=== PATIENT | female | born 1955 | race Caucasian/White ===

== ENCOUNTER 2024-07-22 19:09 | Inpatient (IN) | payer OTHER, SELFPAY ==
--- NOTE | ~2024-07-22 | XR_ITS ---
EXAMINATION: XR CHEST CLINICAL INFORMATION: cough COMPARISON: Chest x-ray 07/22/2024 TECHNIQUE: Frontal view of the chest was obtained. FINDINGS: The lungs are hypoexpanded without acute pneumonic process. There is a focal density in the left retrocardiac area likely fluid-filled hiatal hernia. Consolidation is not excluded. Heart size is normal. Pulmonary vascularity is normal. No gross bony abnormality. XR/XR chest 1V IMPRESSION: Density left retrocardiac area with most likely fluid-filled hiatal hernia. Consolidation is not excluded. Recommend lateral view. Hypoventilated lungs. Electronically signed by: Hector Landis MD 07/26/2024 04:37 PM EST
--- NOTE | ~2024-07-22 | CT_ITS ---
CLINICAL HISTORY: Mental status change CT head without contrast Comparison: None Findings: Scattered subcortical and periventricular hypoattenuation, likely in keeping with chronic small vessel ischemic disease. Parenchymal volume loss with compensatory prominence of the ventricles and CSF spaces. No acute territorial infarction, intracranial hemorrhage, midline shift or hydrocephalus. The visualized paranasal sinuses and mastoid air cells are normal. The orbits are unremarkable. There is no acute fracture. Bilateral lens extraction. IMPRESSION: 1. No acute intracranial findings. 2. Additional findings as described. This document has been electronically signed by: Rodrigo Clark MD on 07/22/2024 20:23:30
--- NOTE | ~2024-07-22 | XR_ITS ---
CLINICAL HISTORY: Mental status change 1 view chest x-ray Comparison: None Findings: Low lung volumes. The lungs are clear. Heart size is normal. No acute fracture. IMPRESSION: 1. No acute findings. This document has been electronically signed by: Rodrigo Clark MD on 07/22/2024 20:03:48
--- NOTE | ~2024-07-22 | CT_ITS ---
CLINICAL HISTORY: Elevated lactic CT abdomen and pelvis without contrast Comparison: None Findings: Motion and streak artifact limit evaluation. 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 Calcified granuloma in the right lung. Cardiomegaly without significant pericardial effusion. Coronary artery calcifications. Postcholecystectomy. Calcified granulomas in the spleen. Thickening of the bilateral adrenal glands/hyperplasia, nonspecific. No urolithiasis. Large rectal and colonic stool burden. No bowel obstruction. Postsurgical abdominal wall changes. Normal appendix. Scattered colonic diverticulosis without diverticulitis or colitis. Correa catheter in the bladder, decompressed with mural thickening and scattered air anteriorly may be related to infection or instrumentation. The bones are intact. IMPRESSION: 1. Correa catheter in place with questionable cystitis. 2. Large rectal and colonic stool burden. This document has been electronically signed by: Rodrigo Clark MD on 07/23/2024 02:21:32
[2024-07-22 19:28] VITALS: PULSE 78; O2SAT 93
[2024-07-22 19:30] VITALS: BP 154/71; PULSE 75; RESP 20; TEMP 36.1; O2SAT 96; BMI 38.2
[2024-07-22 19:30] LABS: Glucose, Whole Blood > 600 mg/dL (60-115)
--- NOTE | 2024-07-22 19:40 | ECG_ITS ---
Test Reason : MENTAL STATUS CHANGE Blood Pressure : */* mmHG Vent. Rate : 76 BPM Atrial Rate : 76 BPM P-R Int : 146 ms QRS Dur : 80 ms QT Int : 396 ms P-R-T Axes : 29 1 46 degrees QTcB Int : 445 ms Normal sinus rhythm Normal ECG No previous ECGs available Referred By: Blaire Alves Electronically Signed By: Clinton Rodriguez
--- NOTE | 2024-07-22 19:43 | ED.AMS ---
HPI - Altered Mental Status General Chief Complaint: Altered Mental Status Stated Complaint: ams x 2 days, weakness Time Seen by Provider: 07/22/24 19:28 Source: family (Daughter) and seismic interpreter Mode of arrival: ambulatory Limitations: no limitations and altered mental status History of Present Illness ED Provider: DR. Alves HPI narrative: 68-year-old female past medical history significant for advanced Alzheimer dementia brought in by her daughter for evaluation of change mental status. Patient normally is nonverbal able to do some of her daily activity but needs her family services manager to do most of the daily activity, patient found to lethargic and decrease status change, daughter admitted that she gave her THC gummies to help her to sleep at night but otherwise do not use no drugs, do not use alcohol. As per family no fever, no chills, no coughing, no chest pain, no abdominal pain. History was obtained from daughter at the bedside, no old records for this patient in our hospital. Related Data Allergies Allergy/AdvReac Type Severity Reaction Status Date / Time No Known Allergies Allergy Verified 07/22/24 19:36 Review of Systems Review of Systems: All other systems are reviewed and are negative Constitutional: Reports as per HPI and Reports no additional constitutional complaints Eyes: Reports as per HPI and Reports no additional eye complaints Reports system reviewed and no additional complaints, except as documented Cardiovascular: Reports as per HPI and Reports no additional cardiovascular complaints Respiratory: Reports as per HPI and Reports no additional respiratory complaints Gastrointestinal: Reports as per HPI and Reports no additional gastrointestinal complaints Genitourinary: Reports no additional female genitourinary complaints Musculoskeletal: Reports no additional musculoskeletal complaints Skin/Breast: Reports system reviewed and no additional complaints, except as docu Psychiatric: Reports no additional psychiatric complaints Endocrine: Reports no additional endocrine complaints Hematologic/Lymphatic: Reports no additional hematologic/lymphatic complaints Allergic/Immunologic: Reports no additional allergic/immunologic complaints Reports system reviewed and no additional complaints, except as documented and Reports Abnormal speech present [facility] Social History Social History Use of substances other than those prescribed or required for medical reasons: Yes Substance Use Type: Marijuana Advance Directives: No Advance Directives Information Provided: No Physical Exam ED Vital Signs: Vital Signs - 24 hr 07/22/24 19:30 07/22/24 22:15 07/23/24 00:42 Temperature 97.0 F 97.6 F Pulse Rate 75 72 68 Respiratory Rate 20 14 19 Blood Pressure 154/71 H 151/58 H 123/24 L Pulse Oximetry 96 98 97 Oxygen Delivery Method Room Air Room Air Room Air BMI result Body Mass Index 38.2 Vital signs have been reviewed and appear to be correct. Blood pressure elevated. Heart rate normal. Respiratory rate normal. Temperature normal. Oxygen saturation normal. Appearance: Alert. Lethargic respond to verbal stimuli by opening her eyes. No acute distress. Head: Normal external exam. Normocephalic. Atraumatic. No Bennett signs noted. No raccoon eyes noted Eyes: PERRLA. EOMI. Conjunctiva and sclera normal. Eyelids normal. ENT: TM's Normal. Pharynx normal. Uvula midline. Moist mucous membranes. No trismus noted. No drooling noted. No muffled voice noted. Neck: Normal inspection. Neck supple. FROM. No adenopathy. Thyroid Normal. No meningeal signs. No neck mass noted. CVS: Normal heart rate and rhythm. Heart sound normal. No murmurs noted. Pulses normal throughout. Respiratory: No respiratory distress. Painless inspiration. Breath sounds normal. No wheezes/rales/rhonchi noted. Chest nontender. No accessory muscle usage noted or decreased air movement noted. Abdomen: Soft and nontender. Bowel sounds normal in all 4 quadrants. No distention noted. No organomegaly noted. No visible injury noted. Back: No CVA tenderness. Full range of motion noted. Skin: Skin warm and dry. Normal skin color. Normal skin turgor. No rashes/lesions/lacerations noted. Extremities: No lower extremity edema. Extremities exhibit normal range of motion. Extremities nontender. Neuro: Lethargic. Cranial nerve exam: II-XII are grossly intact No motor deficit. No sensory deficit. Reflexes normal. Course Reevaluation(s) Reevaluation #1: 68 yo female with baseline dementia. Patient presented with change mental status found to be in HHS calculated water deficit was about 4 L patient received in the emergency department 2-1/2 L of saline, patient received also total of 15 units of IV insulin boluses repeat labs showed improvement of hyperglycemia with worsening of hypernatremia. 1. Will start on insulin drip start on 7 units/hour. 2. will change IV fluids from normal saline to LR according to the insulin IV drip protocol. 3. Head CT is unremarkable. 4. discussed with Dr. Saunders accepted to ICU. Time: 01:02 Medications Administered Discontinued Medications Generic Name Dose Route Start Last Admin Trade Name Debbie PRN Reason Stop Dose Admin Sodium Chloride 1,000 mls @ 999 mls/hr 07/22/24 19:40 07/22/24 22:40 Ns IV 07/22/24 20:40 Infused .Q1H1M ONE Infusion Sodium Chloride 1,000 mls @ 999 mls/hr 07/22/24 20:49 07/22/24 23:42 Ns IV 07/22/24 21:49 Infused .Q1H1M ONE Infusion Sodium Chloride 1,000 mls @ 999 mls/hr 07/22/24 21:55 07/23/24 00:28 Ns IV 07/22/24 22:55 Infused .Q1H1M ONE Infusion Insulin Human Regular 10 unit 07/22/24 20:49 07/22/24 21:05 Insulin Regular, Human 100 Unit/Ml 10 Ml Vial IVPUSH 07/22/24 20:50 10 unit ONCE ONE Administration Insulin Human Regular 5 unit 07/22/24 21:54 07/22/24 22:05 Insulin Regular, Human 100 Unit/Ml 10 Ml Vial IVPUSH 07/22/24 21:55 5 unit ONCE ONE Administration Naloxone HCl 0.2 mg 07/22/24 19:47 07/22/24 20:12 Naloxone Hcl 0.4 Mg/Ml Vial IVPUSH 07/22/24 19:48 0.2 mg STAT STA Administration Medical Decision Making Differential Diagnosis Differential Diagnoses: The differential diagnosis associated with the presentation includes (DKA, HHS, electrolyte derangement, severe anemia, UTI, pneumonia, pneumothorax, pleural effusion, intracranial pathology, metabolic encephalopathy.) Admission/Observation Consideration of admission/observation: Escalation of care including admission/observation considered Consult Healthcare Provider Management of the patient was discussed with: Parimutuel Ticket Checker (Dr. Saunders.) Lab Data MDM Lab Attestation statement: I reviewed the patient's lab results. 07/22/24 20:13 07/22/24 23:40 Labs: Lab Results 07/22/24 07/22/24 07/22/24 Range/Units 19:26 20:12 20:13 WBC 13.7 H (4.8-10.8) X10*3/uL RBC 5.53 H (4.20-5.50) X10*6/uL Hgb 15.4 (12.0-16.0) g/dl Hct 49.0 H (37.0-47.0) % MCV 88.6 (80.0-98.0) fL MCH 27.8 (27.0-33.0) pg MCHC 31.4 (31.0-35.0) g/dl RDW 14.7 (11.0-16.0) % Plt Count 311 (160-400) X10*3/uL MPV 12.1 (9.4-12.3) fL Immature Gran % (Auto) 0.4 (0.0-0.4) % Neut % (Auto) 85.6 H (45-73) % Lymph % (Auto) 6.3 L (20-40) % [place] % (Auto) 7.2 (2-11) % Eos % (Auto) 0.0 (0-4) % Baso % (Auto) 0.5 (0-2) % Lymph # (Auto) 0.9 L (1.2-4.9) X10*3/uL [place] # (Auto) 1.0 (0.1-1.2) X10*3/uL Eos # (Auto) 0.0 (0.0-0.4) X10*3/uL Baso # (Auto) 0.1 (0.0-0.2) X10*3/uL Abs Immat Gran (auto) 0.06 H (0.00-0.03) X10*3/uL Absolute Neuts (auto) 11.7 H (2.0-8.3) x10*3/uL Absolute Nucleated RBC 0.000 (0.0-0.012) X10*3/uL Nucleated RBC % (auto) 0.0 (0.0-0.2) /100WBC VBG pH (7.32-7.43) VBG pCO2 mmHg VBG pO2 mmHg VBG HCO3 (22-26) mmol/L VBG O2 Saturation % VBG Base Excess mmol/L Sodium 155 H (135-145) mmol/L Potassium 4.0 (3.3-5.1) mmol/L Chloride 118 H (96-108) mmol/L Carbon Dioxide 21 L (22-29) mmol/L Anion Gap 20 (12-20) BUN 83 H (9-16) mg/dL Creatinine 3.34 H (0.5-1.4) mg/dL Estim Creat Clear Calc 14.4 Estimated GFR 14 POC Glucose > 600 H* (60-115) mg/dL Random Glucose 1152 H* (60-115) mg/dL Calcium 11.0 H (8.4-10.2) mg/dL Total Bilirubin 0.5 (0.0-1.0) mg/dL Direct Bilirubin 0.2 (0.0-0.5) mg/dL AST 17 (5-31) U/L ALT 9 (0-31) U/L Alkaline Phosphatase 133 H (39-117) U/L Ammonia 37 (13-55) umol/L Troponin I High Sens 23.6 H (<3.5-17.0) ng/L B-Natriuretic Peptide 44 (<100) pg/mL Total Protein 8.8 H (6.5-8.0) g/dL Albumin 4.3 (3.5-5.0) g/dL Lipase 125 H (8-78) U/L Urine Color Urine Appearance Urine pH (5.0-9.0) Ur Specific [place] (1.005-1.025) Urine Protein (Neg-Trace) mg/dL Urine Glucose (UA) (Negative) mg/dL Urine Ketones (Negative) mg/dL Urine Blood (Negative) Urine Nitrite (Negative) Ur Leukocyte Esterase (Negative) Urine RBC (0-2) /HPF Urine WBC (0-5) /HPF Ur Squamous Epith Cells (0-2) /HPF Urine Bacteria (None Seen) Hyaline Casts (0-2) /LPF Urine Opiates Screen (Not Detect) Ur Buprenorphine Scrn (Not Detect) ng/mL Ur Oxycodone Screen (Not Detect) ng/mL Urine Methadone Screen (Not Detect) ng/mL Urine Fentanyl Screen (Not Detect) Ur Barbiturates Screen (Not Detect) Ur Phencyclidine Scrn (Not Detect) Ur Amphetamines Screen (Not Detect) U Benzodiazepines Scrn (Not Detect) Urine Cocaine Screen (Not Detect) U Marijuana (THC) Screen (Not Detect) Ethyl Alcohol < 10 mg/dL Influenza Type A (PCR) NEGATIVE (Negative) Influenza Type B (PCR) NEGATIVE (Negative) RSV RNA Qual (PCR) NEGATIVE (Negative) SARS-CoV-2 RNA (RT-PCR) NEGATIVE (Negative) 07/22/24 07/22/24 07/22/24 Range/Units 20:19 22:09 23:24 WBC (4.8-10.8) X10*3/uL RBC (4.20-5.50) X10*6/uL Hgb (12.0-16.0) g/dl Hct (37.0-47.0) % MCV (80.0-98.0) fL MCH (27.0-33.0) pg MCHC (31.0-35.0) g/dl RDW (11.0-16.0) % Plt Count (160-400) X10*3/uL MPV (9.4-12.3) fL Immature Gran % (Auto) (0.0-0.4) % Neut % (Auto) (45-73) % Lymph % (Auto) (20-40) % [place] % (Auto) (2-11) % Eos % (Auto) (0-4) % Baso % (Auto) (0-2) % Lymph # (Auto) (1.2-4.9) X10*3/uL [place] # (Auto) (0.1-1.2) X10*3/uL Eos # (Auto) (0.0-0.4) X10*3/uL Baso # (Auto) (0.0-0.2) X10*3/uL Abs Immat Gran (auto) (0.00-0.03) X10*3/uL Absolute Neuts (auto) (2.0-8.3) x10*3/uL Absolute Nucleated RBC (0.0-0.012) X10*3/uL Nucleated RBC % (auto) (0.0-0.2) /100WBC VBG pH 7.35 (7.32-7.43) VBG pCO2 37 mmHg VBG pO2 41 mmHg VBG HCO3 21 L (22-26) mmol/L VBG O2 Saturation 67.0 % VBG Base Excess -3.4 mmol/L Sodium (135-145) mmol/L Potassium (3.3-5.1) mmol/L Chloride (96-108) mmol/L Carbon Dioxide (22-29) mmol/L Anion Gap (12-20) BUN (9-16) mg/dL Creatinine (0.5-1.4) mg/dL Estim Creat Clear Calc Estimated GFR POC Glucose > 600 H* (60-115) mg/dL Random Glucose (60-115) mg/dL Calcium (8.4-10.2) mg/dL Total Bilirubin (0.0-1.0) mg/dL Direct Bilirubin (0.0-0.5) mg/dL AST (5-31) U/L ALT (0-31) U/L Alkaline Phosphatase (39-117) U/L Ammonia (13-55) umol/L Troponin I High Sens (<3.5-17.0) ng/L B-Natriuretic Peptide (<100) pg/mL Total Protein (6.5-8.0) g/dL Albumin (3.5-5.0) g/dL Lipase (8-78) U/L Urine Color Yellow Urine Appearance Cloudy Urine pH 5.0 (5.0-9.0) Ur Specific [place] >= 1.030 H (1.005-1.025) Urine Protein 30 (1+) H (Neg-Trace) mg/dL Urine Glucose (UA) >=1000 H (Negative) mg/dL Urine Ketones Negative (Negative) mg/dL Urine Blood Moderate (2+) H (Negative) Urine Nitrite Negative (Negative) Ur Leukocyte Esterase Small (1+) H (Negative) Urine RBC 3-5 H (0-2) /HPF Urine WBC 21-50 H (0-5) /HPF Ur Squamous Epith Cells >20 (0-2) /HPF Urine Bacteria 4+ (None Seen) Hyaline Casts 11-20 (0-2) /LPF Urine Opiates Screen Not Detected (Not Detect) Ur Buprenorphine Scrn Not Detected (Not Detect) ng/mL Ur Oxycodone Screen Not Detected (Not Detect) ng/mL Urine Methadone Screen Not Detected (Not Detect) ng/mL Urine Fentanyl Screen Not Detected (Not Detect) Ur Barbiturates Screen Not Detected (Not Detect) Ur Phencyclidine Scrn Not Detected (Not Detect) Ur Amphetamines Screen Not Detected (Not Detect) U Benzodiazepines Scrn Not Detected (Not Detect) Urine Cocaine Screen Not Detected (Not Detect) U Marijuana (THC) Screen POSITIVE H (Not Detect) Ethyl Alcohol mg/dL Influenza Type A (PCR) (Negative) Influenza Type B (PCR) (Negative) RSV RNA Qual (PCR) (Negative) SARS-CoV-2 RNA (RT-PCR) (Negative) 07/22/24 Range/Units 23:40 WBC (4.8-10.8) X10*3/uL RBC (4.20-5.50) X10*6/uL Hgb (12.0-16.0) g/dl Hct (37.0-47.0) % MCV (80.0-98.0) fL MCH (27.0-33.0) pg MCHC (31.0-35.0) g/dl RDW (11.0-16.0) % Plt Count (160-400) X10*3/uL MPV (9.4-12.3) fL Immature Gran % (Auto) (0.0-0.4) % Neut % (Auto) (45-73) % Lymph % (Auto) (20-40) % [place] % (Auto) (2-11) % Eos % (Auto) (0-4) % Baso % (Auto) (0-2) % Lymph # (Auto) (1.2-4.9) X10*3/uL [place] # (Auto) (0.1-1.2) X10*3/uL Eos # (Auto) (0.0-0.4) X10*3/uL Baso # (Auto) (0.0-0.2) X10*3/uL Abs Immat Gran (auto) (0.00-0.03) X10*3/uL Absolute Neuts (auto) (2.0-8.3) x10*3/uL Absolute Nucleated RBC (0.0-0.012) X10*3/uL Nucleated RBC % (auto) (0.0-0.2) /100WBC VBG pH (7.32-7.43) VBG pCO2 mmHg VBG pO2 mmHg VBG HCO3 (22-26) mmol/L VBG O2 Saturation % VBG Base Excess mmol/L Sodium 160 H* (135-145) mmol/L Potassium 3.6 (3.3-5.1) mmol/L Chloride 128 H (96-108) mmol/L Carbon Dioxide 17 L (22-29) mmol/L Anion Gap 19 (12-20) BUN 77 H (9-16) mg/dL Creatinine 3.36 H (0.5-1.4) mg/dL Estim Creat Clear Calc 14.3 Estimated GFR 14 POC Glucose (60-115) mg/dL Random Glucose 843 H* (60-115) mg/dL Calcium 10.5 H (8.4-10.2) mg/dL Total Bilirubin (0.0-1.0) mg/dL Direct Bilirubin (0.0-0.5) mg/dL AST (5-31) U/L ALT (0-31) U/L Alkaline Phosphatase (39-117) U/L Ammonia (13-55) umol/L Troponin I High Sens (<3.5-17.0) ng/L B-Natriuretic Peptide (<100) pg/mL Total Protein (6.5-8.0) g/dL Albumin (3.5-5.0) g/dL Lipase (8-78) U/L Urine Color Urine Appearance Urine pH (5.0-9.0) Ur Specific [place] (1.005-1.025) Urine Protein (Neg-Trace) mg/dL Urine Glucose (UA) (Negative) mg/dL Urine Ketones (Negative) mg/dL Urine Blood (Negative) Urine Nitrite (Negative) Ur Leukocyte Esterase (Negative) Urine RBC (0-2) /HPF Urine WBC (0-5) /HPF Ur Squamous Epith Cells (0-2) /HPF Urine Bacteria (None Seen) Hyaline Casts (0-2) /LPF Urine Opiates Screen (Not Detect) Ur Buprenorphine Scrn (Not Detect) ng/mL Ur Oxycodone Screen (Not Detect) ng/mL Urine Methadone Screen (Not Detect) ng/mL Urine Fentanyl Screen (Not Detect) Ur Barbiturates Screen (Not Detect) Ur Phencyclidine Scrn (Not Detect) Ur Amphetamines Screen (Not Detect) U Benzodiazepines Scrn (Not Detect) Urine Cocaine Screen (Not Detect) U Marijuana (THC) Screen (Not Detect) Ethyl Alcohol mg/dL Influenza Type A (PCR) (Negative) Influenza Type B (PCR) (Negative) RSV RNA Qual (PCR) (Negative) SARS-CoV-2 RNA (RT-PCR) (Negative) Independent Interpretation I performed an independent interpretation of an: Plain X-Ray (Chest: No acute findings.) and CT Scan (Head:. No acute intracranial findings. 2. Additional findings as described.) Radiology Impression Discussion of test interpretation with radiology: I have reviewed the radiologist's reading. 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
[2024-07-22] MEDS: Naloxone HCl 0.4 MG/ML VIAL 0.2 MG IVPUSH (20:12)
[2024-07-22] MEDS: 0.9 % Sodium Chloride 1,000 ML 999 ML IV ×3 (20:14→23:42)
--- NOTE | 2024-07-22 20:17 | PC.NURSE ---
At approximately 1920 provider [place] was notified that pt was lethargic and POC was reading high Safety Officer called [place] with family and drop hammer set up operator plan of care ongoing.
[2024-07-22 20:19] LABS: MANUAL DIFF FLAG NO
--- NOTE | 2024-07-22 20:19 | PC.NURSE ---
Pt medicated per [facility] Plan of care ongoing.
[2024-07-22 20:21] LABS: Basophils Absolute Auto 0.1 X10*3/uL (0.0-0.2); Basophils Percent Auto 0.5 % (0-2); Hemoglobin 15.4 g/dl (12.0-16.0); Imm Gran Abs Auto 0.06 X10*3/uL (0.00-0.03); Imm Gran Pct Auto 0.4 % (0.0-0.4); Lymphocytes Absolute Auto 0.9 X10*3/uL (1.2-4.9); Lymphocytes Percent Auto 6.3 % (20-40); Mean Corpuscular HGB Conc 31.4 g/dl (31.0-35.0); Mean Corpuscular Hemoglobin 27.8 pg (27.0-33.0); Mean Corpuscular Volume 88.6 fL (80.0-98.0); Mean Platelet Volume 12.1 fL (9.4-12.3); Monocytes Percent Auto 7.2 % (2-11); Neutrophils Absolute Auto 11.7 x10*3/uL (2.0-8.3); Neutrophils Percent Auto 85.6 % (45-73); Platelet Count 311 X10*3/uL (160-400); Red Blood Count 5.53 X10*6/uL (4.20-5.50); Red Cell Distribution Width 14.7 % (11.0-16.0); White Blood Count 13.7 X10*3/uL (4.8-10.8)
[2024-07-22 20:28] LABS: Ammonia 37 umol/L (13-55)
[2024-07-22 20:40] LABS: VBG Base Excess -3.4 mmol/L; VBG HCO3 21 mmol/L (22-26); VBG pCO2 37 mmHg; VBG pH 7.35 (7.32-7.43); VBG pO2 41 mmHg
[2024-07-22 20:40] LABS: Alanine Aminotransferase 9 U/L (0-31); Albumin Level 4.3 g/dL (3.5-5.0); Alkaline Phosphatase 133 U/L (39-117); Anion Gap 20 (12-20); Aspartate Amino Transferase 17 U/L (5-31); Bilirubin Direct 0.2 mg/dL (0.0-0.5); Bilirubin Total 0.5 mg/dL (0.0-1.0); Blood Urea Nitrogen 83 mg/dL (9-16); Carbon Dioxide 21 mmol/L (22-29); Chloride 118 mmol/L (96-108); Creatinine Clr Calc Pharmacy 14.4; Estimated Glomerular Filt Rate 14; Ethanol < 10 mg/dL; Lipase 125 U/L (8-78); Sodium 155 mmol/L (135-145); Total Protein 8.8 g/dL (6.5-8.0)
[2024-07-22 20:41] LABS: Venous Blood Gas Refer to POC result
[2024-07-22 20:41] LABS: B Type Natriuretic Peptide 44 pg/mL (<100)
[2024-07-22 20:44] LABS: Troponin-I High Sensitivity 23.6 ng/L (<3.5-17.0)
[2024-07-22 20:50] LABS: Glucose Random 1152 mg/dL (60-115)
[2024-07-22 20:57] LABS: Influenza A PCR NEGATIVE (Negative); Influenza B PCR NEGATIVE (Negative); Resp Syncy Virus RNA Qual PCR NEGATIVE (Negative); SARS COV2 PCR INHOUSE NEGATIVE (Negative)
[2024-07-22] MEDS: Insulin Regular, Human 100 UNIT/ML 10 ML VIAL 10 UNIT IVPUSH (21:05)
--- NOTE | 2024-07-22 21:10 | PC.NURSE ---
Pt medicated per [facility] Plan of care ongoing.
[2024-07-22] MEDS: Insulin Regular, Human 100 UNIT/ML 10 ML VIAL IVPUSH (22:05)
[2024-07-22 22:14] LABS: Glucose, Whole Blood > 600 mg/dL (60-115)
[2024-07-22 22:15] VITALS: BP 151/58; PULSE 72; RESP 14; O2SAT 98
[2024-07-22 23:30] LABS: Appearance Urine Cloudy; Color Urine Yellow; Glucose Urine UA >=1000 mg/dL (Negative); Leukocyte Esterase Urine Small (1+) (Negative); Nitrite Urine Negative (Negative); Specific Gravity - Urine >= 1.030 (1.005-1.025); UMIC TRIGGER UACC YES; Urine Blood Moderate (2+) (Negative); Urine Ketones Negative (Negative); Urine Protein 30 (1+) mg/dL (Neg-Trace)
--- NOTE | 2024-07-22 23:45 | PC.NURSE ---
Pt medicated per [facility] Plan of care ongoing.
[2024-07-22 23:49] LABS: Amphetamine Screen Urine Not Detected (Not Detect); Barbiturates, Urine Not Detected (Not Detect); Benzodiazepines Screen Urine Not Detected (Not Detect); Buprenorphine Scr Not Detected (Not Detect); Cannabinoid Screen Urine POSITIVE (Not Detect); Cocaine Screen Urine Not Detected (Not Detect); Fentanyl, urine Not Detected (Not Detect); Methadone Screen, Urine Not Detected (Not Detect); Opiate Screen Urine Not Detected (Not Detect); Oxycodone Screen Urine Not Detected (Not Detect); Phencyclidine Screen Urine Not Detected (Not Detect)
[2024-07-23] VITALS (23 sets, daily range): BP systolic 113–156; BP diastolic 44–99; PULSE 63–87; RESP 10–22; TEMP 36.1–36.7; O2SAT 93–100; BMI 38.8
[2024-07-23 00:06] LABS: Bacteria Urine 4+ (None Seen); Squamous Epithelial Cell Urine >20 /HPF (0-2); UACC Culture Trigger YES; WBC Urine 21-50 /HPF (0-5)
[2024-07-23 00:32] LABS: Anion Gap 19 (12-20); Blood Urea Nitrogen 77 mg/dL (9-16); Calcium 10.5 mg/dL (8.4-10.2); Carbon Dioxide 17 mmol/L (22-29); Chloride 128 mmol/L (96-108); Creatinine Clr Calc Pharmacy 14.3; Estimated Glomerular Filt Rate 14; Glucose Random 843 mg/dL (60-115); Potassium 3.6 mmol/L (3.3-5.1); Sodium 160 mmol/L (135-145)
[2024-07-23 01:03] LABS: Lactic Acid 4.4 mmol/L (0.5-2.0)
[2024-07-23] MEDS: Insulin Regular/NS 100 UNIT/100 ML PLAST..BAG 7 UNIT IVCONT (01:14)
[2024-07-23] MEDS: cefTRIAXone sodium 1 GM VIAL IVPUSH (01:22)
--- NOTE | 2024-07-23 02:12 | PM.CCHP ---
History of Present Illness Date of Service: 07/23/24 Attending physician on admission: Gael Saunders Chief Complaint: AMS The patient is a 68 year old female with a past medical history of diabetes mellitus? Alzheimer?s dementia, hypertension,? hyperlipidemia and hypothyroidism? who presented to the emergency department due to altered mental status.? According to daughter, who is also patient HUMAN RESOURCES ADVISOR,? patient has a diagnosis of Alzheimer?s dementia,? in the last month? patient?s speech/mentation/ambulation has decreased,? reports she? became nonverbal 2-3 days ago.? She reports patient has also had a hard time taking her meds, ? states she has tried to crush them but patient is still not able to take the meds,? daughter is unsure for how long patient has not been taking her meds.? Also admits to giving her THC gummies,? to help her sleep.? ?Laboratory data significant for? WBC 13.7, serum sodium 155, chloride 118, serum bicarb 21, BUN 83, creatinine 3.34, random glucose 1152,? lactic 4.4, lipase 125 Urine:? no ketones,? positive for leukocytes IMAGING:? Head CT: Negative? for acute finding ?Chest x-ray:? no acute findings ED COURSE:? ?Patient received 3L bolus,? 15 units of IV push insulin,? ceftriaxone 1 g, and started on insulin drip? Review of Systems Review of Systems: Yes all other systems are reviewed and are negative COUNT INCLUDES THE [facility] Past Medical History Medical History (Updated 07/23/24 @ 02:54 by Yony Hancock NP) Hypothyroidism Hyperlipidemia Hypertension Social History Social History Household Members: Family and Children Household Members Other:: Daughter and Daughter Housing: Apartment Do you presently have visiting nurse or other home services: Yes (Daughter is HUMAN RESOURCES ADVISOR) Patient Tobacco Use Status: Never used Tobacco Second Hand Smoke Exposure: Yes Use of substances other than those prescribed or required for medical reasons: Yes Substance Use Type: Marijuana Currently Displaying Signs/Symptoms of Drug Intoxication Withdrawal: No Advance Directives: No Advance Directives Information Provided: No Recently lost weight without trying: No Patient : No : No Meds Allergies Allergy/AdvReac Type Severity Reaction Status Date / Time No Known Allergies Allergy Verified 07/22/24 19:36 Active Medications: Current Medications Ceftriaxone Sodium (Ceftriaxone Sodium 1 Gm Vial) 1 gm IVPUSH BEDTIME ALFONZO Dextrose (Dextrose 50 % 25 Gm/50 Ml Syringe) 25 gm IVPUSH Q30M PRN PRN Reason: BG < 70 Heparin Sodium (Porcine) (Heparin Sodium,Porcine 5,000 Unit/Ml Vial) 5,000 unit SUBCUT TID [facility] Insulin Human Regular (Myxredlin) 100 unit in 100 mls @ 7 mls/hr IVCONT .[id number] ALFONZO; Protocol Last Admin: 07/23/24 01:14 Dose: 7 unit/hr, 7 mls/hr Potassium Chloride (Potassium Chloride/H20) 10 meq in 100 mls @ 100 mls/hr IV Q1H ALFONZO Stop: 07/23/24 05:29 Home Medications ?Medication ?Instructions ?Recorded ?Confirmed ?Last Taken ?Type amlodipine 5 mg tablet 5 mg PO DAILY 07/23/24 07/23/24 07/21/24 History aspirin 81 mg tablet,delayed 81 mg PO DAILY 07/23/24 07/23/24 07/21/24 History release atorvastatin 10 mg tablet 10 mg PO DAILY 07/23/24 07/23/24 07/21/24 History bisoprolol 10 1 tab PO DAILY 07/23/24 07/23/24 07/21/24 History mg-hydrochlorothiazide 6.25 mg tablet donepezil 10 mg tablet 10 mg PO BEDTIME 07/23/24 07/23/24 07/21/24 History glipizide 2.5 mg tablet, extended 2.5 mg PO DAILY 07/23/24 07/23/24 07/21/24 History release 24 hr levothyroxine 150 mcg tablet 150 mcg PO DAILY 07/23/24 07/23/24 07/21/24 History lisinopril 20 mg tablet 20 mg PO DAILY 07/23/24 07/23/24 07/21/24 History omeprazole 20 mg capsule,delayed 20 mg PO DAILY 07/23/24 07/23/24 07/21/24 History release Physical Exam Vital Signs: Vital Signs: Last Vital Signs Temp 97.6 F 07/23/24 00:42 Pulse 68 07/23/24 00:42 Resp 19 07/23/24 00:42 BP 123/44 L 07/23/24 00:42 Pulse Ox 97 07/23/24 00:42 O2 Del Method Room Air 07/23/24 00:42 BMI result Body Mass Index 38.2 ?General:? Patient is alert but not able to respond to questions/ commands ?HEENT:? Head is normocephalic, atraumatic, pupils equal round reactive to light accommodation bilaterally.? Extraocular movements appear intact.? Buccal mucosa is dry, Neck is supple ?Cardiac:? Clear S1-S2, no murmurs rubs or gallops. ?Pulmonary:? Clear to auscultation, no wheezes, rales or rhonchi. ?Abdomen:? ?Abdomen soft, non-tender, non-distended. Normal bowel sounds. No pulsatile mass. No hepatosplenomegaly. ?Musculoskeletal:? Moving all 4 extremities randomly and equally. ? ?Neurologic:?No focal deficits noted.Motor strength as above.?? ?Skin:?BLE Trace edema Vascular:? 2+ pulses upper and lower extremities distally.? Results Labs 07/23/24 06:20 07/23/24 06:20 Labs: Laboratory Results - last 24 hr 07/22/24 07/22/24 07/22/24 19:26 20:12 20:13 MCV 88.6 MCH 27.8 MCHC 31.4 RDW 14.7 Plt Count 311 MPV 12.1 Immature Gran % (Auto) 0.4 Neut % (Auto) 85.6 H Lymph % (Auto) 6.3 L [place] % (Auto) 7.2 Eos % (Auto) 0.0 Baso % (Auto) 0.5 Lymph # (Auto) 0.9 L [place] # (Auto) 1.0 Eos # (Auto) 0.0 Baso # (Auto) 0.1 Abs Immat Gran (auto) 0.06 H Absolute Neuts (auto) 11.7 H Absolute Nucleated RBC 0.000 Nucleated RBC % (auto) 0.0 VBG pH VBG pCO2 VBG pO2 VBG HCO3 VBG O2 Saturation VBG Base Excess Anion Gap 20 Estim Creat Clear Calc 14.4 Estimated GFR 14 POC Glucose > 600 H* Random Glucose 1152 H* Lactic Acid Calcium 11.0 H Total Bilirubin 0.5 Direct Bilirubin 0.2 AST 17 ALT 9 Alkaline Phosphatase 133 H Ammonia 37 B-Natriuretic Peptide 44 Total Protein 8.8 H Albumin 4.3 Lipase 125 H Urine Color Urine Appearance Urine pH Ur Specific [place] Urine Protein Urine Glucose (UA) Urine Ketones Urine Blood Urine Nitrite Ur Leukocyte Esterase Urine RBC Urine WBC Ur Squamous Epith Cells Urine Bacteria Hyaline Casts Urine Opiates Screen Ur Buprenorphine Scrn Ur Oxycodone Screen Urine Methadone Screen Urine Fentanyl Screen Ur Barbiturates Screen Ur Phencyclidine Scrn Ur Amphetamines Screen U Benzodiazepines Scrn Urine Cocaine Screen U Marijuana (THC) Screen Ethyl Alcohol < 10 Influenza Type A (PCR) NEGATIVE Influenza Type B (PCR) NEGATIVE RSV RNA Qual (PCR) NEGATIVE SARS-CoV-2 RNA (RT-PCR) NEGATIVE 07/22/24 07/22/24 07/22/24 20:19 22:09 23:24 MCV MCH MCHC RDW Plt Count MPV Immature Gran % (Auto) Neut % (Auto) Lymph % (Auto) [place] % (Auto) Eos % (Auto) Baso % (Auto) Lymph # (Auto) [place] # (Auto) Eos # (Auto) Baso # (Auto) Abs Immat Gran (auto) Absolute Neuts (auto) Absolute Nucleated RBC Nucleated RBC % (auto) VBG pH 7.35 VBG pCO2 37 VBG pO2 41 VBG HCO3 21 L VBG O2 Saturation 67.0 VBG Base Excess -3.4 Anion Gap Estim Creat Clear Calc Estimated GFR POC Glucose > 600 H* Random Glucose Lactic Acid Calcium Total Bilirubin Direct Bilirubin AST ALT Alkaline Phosphatase Ammonia B-Natriuretic Peptide Total Protein Albumin Lipase Urine Color Yellow Urine Appearance Cloudy Urine pH 5.0 Ur Specific [place] >= 1.030 H Urine Protein 30 (1+) H Urine Glucose (UA) >=1000 H Urine Ketones Negative Urine Blood Moderate (2+) H Urine Nitrite Negative Ur Leukocyte Esterase Small (1+) H Urine RBC 3-5 H Urine WBC 21-50 H Ur Squamous Epith Cells >20 Urine Bacteria 4+ Hyaline Casts 11-20 Urine Opiates Screen Not Detected Ur Buprenorphine Scrn Not Detected Ur Oxycodone Screen Not Detected Urine Methadone Screen Not Detected Urine Fentanyl Screen Not Detected Ur Barbiturates Screen Not Detected Ur Phencyclidine Scrn Not Detected Ur Amphetamines Screen Not Detected U Benzodiazepines Scrn Not Detected Urine Cocaine Screen Not Detected U Marijuana (THC) Screen POSITIVE H Ethyl Alcohol Influenza Type A (PCR) Influenza Type B (PCR) RSV RNA Qual (PCR) SARS-CoV-2 RNA (RT-PCR) 07/22/24 07/23/24 23:40 00:33 MCV MCH MCHC RDW Plt Count MPV Immature Gran % (Auto) Neut % (Auto) Lymph % (Auto) [place] % (Auto) Eos % (Auto) Baso % (Auto) Lymph # (Auto) [place] # (Auto) Eos # (Auto) Baso # (Auto) Abs Immat Gran (auto) Absolute Neuts (auto) Absolute Nucleated RBC Nucleated RBC % (auto) VBG pH VBG pCO2 VBG pO2 VBG HCO3 VBG O2 Saturation VBG Base Excess Anion Gap 19 Estim Creat Clear Calc 14.3 Estimated GFR 14 POC Glucose Random Glucose 843 H* Lactic Acid 4.4 H* Calcium 10.5 H Total Bilirubin Direct Bilirubin AST ALT Alkaline Phosphatase Ammonia B-Natriuretic Peptide Total Protein Albumin Lipase Urine Color Urine Appearance Urine pH Ur Specific [place] Urine Protein Urine Glucose (UA) Urine Ketones Urine Blood Urine Nitrite Ur Leukocyte Esterase Urine RBC Urine WBC Ur Squamous Epith Cells Urine Bacteria Hyaline Casts Urine Opiates Screen Ur Buprenorphine Scrn Ur Oxycodone Screen Urine Methadone Screen Urine Fentanyl Screen Ur Barbiturates Screen Ur Phencyclidine Scrn Ur Amphetamines Screen U Benzodiazepines Scrn Urine Cocaine Screen U Marijuana (THC) Screen Ethyl Alcohol Influenza Type A (PCR) Influenza Type B (PCR) RSV RNA Qual (PCR) SARS-CoV-2 RNA (RT-PCR) Assessment and Plan (1) Acute UTI: Status: Acute (2) Sepsis: Status: Acute (3) Hyperosmolar hyperglycemic state (HHS): Status: Acute Plan Neuro:?Altered mental status: ? according to daughter patient? has diagnosis of Alzheimer?s dementia,? patient seemed to have has a mentation declines in the last month.? Becoming? nonverbal in the last couple of days. ? Head CT is negative.? Patient has a UTI and is in HHS? this could be the cause of altered mental status.? Should improve? with improvement of hyperglycemia and UTI? Cardiac:? Sepsis:? patient has elevated lactic,? but no evidence of septic shock, ? she is normotensive and no fever.? Causes likely UTI.? Due to? patient mentation will obtain abdominal CT? to rule other possible abdominal sources. Treated with ceftriaxone in the emergency department.? We will continue empiric antibiotics.? Pulmonary:? ?No acute issues Renal:? ?No acute issues Endo:? DM type 2/ Hyperosmolar hyperglycemic state: ? according to daughter patient has not been able to take meds,? this is likely the cause of? HHS. She received x 2? doses IV push insulin, but later requiring? initiation of? insulin drip.? Continue insuli drip? until acceptable glucose levels.? GI: ? No acute issues ID:? ??UTI:? no evidence of? septic shock,? blood cultures obtained in the emergency department and pending.? Continue ceftriaxone Psych:? ? no acute issues? Miscellaneous:?? ?plant maintenance manager consult placed for safe discharge? Prophylaxis: subcut heparin Diet:? NPO, will obtain a formal speech eval MED REC:? med reconsideration pending,? as patient?s daughter does not know medications.? ?Critical care time: ? patient does not qualify for critical care time ?Case discussed with attending Dr Saunders?
[2024-07-23 02:18] LABS: T4 Thyroxine 8.5 ug/dL (4.5-12.0); Thyroid Stimulating Hormone 0.97 uIU/mL (0.32-4.0)
[2024-07-23 02:19] LABS: Glucose, Whole Blood 596 mg/dL (60-115)
[2024-07-23 02:42] LABS: Reflex Lactate? Lactic Acid Added
[2024-07-23 03:20] LABS: Glucose, Whole Blood 450 mg/dL (60-115)
[2024-07-23 03:37] LABS: ~Lactic Acid-LAB USE ONLY 5.5 mmol/L (0.5-2.0)
[2024-07-23] MEDS: Potassium Chloride/H20 10 MEQ/100 ML PIGGYBACK 100 MEQ IV ×4 (03:44→09:03)
[2024-07-23 04:19] LABS: Glucose, Whole Blood 404 mg/dL (60-115)
[2024-07-23 05:06] LABS: Reflex Lactate? 2 Y
--- NOTE | 2024-07-23 05:09 | HO.SKINPHOTO ---
Location: left buttock/upper thigh Present on admission Location: Right buttock Present on admission
[2024-07-23 05:17] LABS: Glucose, Whole Blood 397 mg/dL (60-115)
[2024-07-23 06:20] LABS: Glucose, Whole Blood 371 mg/dL (60-115)
[2024-07-23 06:34] LABS: Venous Blood Gas Refer to POC result
[2024-07-23 06:37] LABS: VBG Base Excess -6.2 mmol/L; VBG HCO3 16 mmol/L (22-26); VBG pCO2 27 mmHg; VBG pO2 131 mmHg
[2024-07-23 06:37] LABS: Basophils Absolute Auto 0.1 X10*3/uL (0.0-0.2); Basophils Percent Auto 0.6 % (0-2); Eosinophils Percent Auto 0.3 % (0-4); Hematocrit 43.8 % (37.0-47.0); Imm Gran Abs Auto 0.09 X10*3/uL (0.00-0.03); Imm Gran Pct Auto 0.6 % (0.0-0.4); Lymphocytes Absolute Auto 1.3 X10*3/uL (1.2-4.9); Lymphocytes Percent Auto 9.2 % (20-40); MANUAL DIFF FLAG SCAN; Mean Corpuscular Hemoglobin 27.8 pg (27.0-33.0); Mean Corpuscular Volume 87.1 fL (80.0-98.0); Monocytes Percent Auto 6.9 % (2-11); Neutrophils Absolute Auto 11.5 x10*3/uL (2.0-8.3); Neutrophils Percent Auto 82.4 % (45-73); PLT CLUMP 1; Red Blood Count 5.03 X10*6/uL (4.20-5.50); Red Cell Distribution Width 14.6 % (11.0-16.0); SCAN SMEAR FLAG 1
--- NOTE | 2024-07-23 06:40 | PC.NURSE ---
Patient arrived to ICU from ED at approx 0200. Upon initial assessment, patient Urdu speaking only. Elevated Guard services to bedside. Per patient's daughter/CONCRETE LAYER, patient has advanced dementia, and is newly nonverbal. Patient alert to name, Moves all extremities, able to occasionally follow commands. SR on tele, HR 60-70s. Lung sounds clear, diminished in the bases, on room air. Abdomen soft and non-tender, active bowel sounds x4. Insulin gtt running per JUL. Per patient daughter, patient has been having difficulty swallowing for the last few days. Speech consult placed by MECHELLE Hancock. Correa catheter in place draining pale yellow urine. Skin warm and dry, areas of maceration to buttocks (see skin photos), diaper rash per daughter. Daughter went home for the night, took patient?belongings with her. Bed locked in lowest possible position, bed alarm on, avasys camera in place for safety.? 0330: Patient dozing, SB on tele, HR dropping to 40s, sometimes high 30s. MECHELLE Hancock aware. 0430: Patient teary and anxious-appearing. Requiring frequent redirection. Verbal reassurance given. 0600: Patient very difficult stick, BAGGER MEAT aware of delay in lab results.? Now: Report given to oncoming RN
[2024-07-23 07:01] LABS: Mean Platelet Volume 12.4 fL (9.4-12.3)
[2024-07-23 07:06] LABS: Platelet Count 188 X10*3/uL (160-400); SLIDE REVIEW VERIFIED
[2024-07-23 07:25] LABS: Albumin Level 3.6 g/dL (3.5-5.0); Anion Gap 17 (12-20); Blood Urea Nitrogen 68 mg/dL (9-16); Calcium 10.3 mg/dL (8.4-10.2); Carbon Dioxide 16 mmol/L (22-29); Chloride 137 mmol/L (96-108); Creatinine Clr Calc Pharmacy 18.4; Estimated Glomerular Filt Rate 18; Glucose Random 431 mg/dL (60-115); Magnesium 2.9 mg/dL (1.6-2.6); Phosphorus 2.4 mg/dL (2.7-4.5); Sodium 166 mmol/L (135-145)
[2024-07-23 07:35] LABS: Glucose, Whole Blood 299 mg/dL (60-115)
[2024-07-23] MEDS: Heparin Sodium,Porcine 5,000 UNIT/ML VIAL 5000 UNIT SUBCUT ×3 (07:52→20:31)
[2024-07-23 07:58] LABS: Estimated Average Glucose 278 mg/dL; Hemoglobin A1C 392.4237 umol/L; Hemoglobin A1c % 11.3 % (<6.0); Total Hemoglobin (HGBA1C) 3927.4184 umol/L
[2024-07-23] MEDS: Dextrose 5 % 1,000 ML 125 ML IVCONT ×3 (08:11→23:52)
--- NOTE | 2024-07-23 08:15 | PHA.MEDREC ---
Pharmacy Consult ? Medication Reconciliation Pharmacy has completed the medication reconciliation. Med rec complete, used cable swager to call daughter and also compared with pharmacy claim history. Daughter confirmed that levothyroxine dose was 150 mcg.
[2024-07-23 08:33] LABS: Glucose, Whole Blood 232 mg/dL (60-115)
[2024-07-23 08:45] LABS: Troponin-I High Sensitivity 27.4 ng/L (<3.5-17.0)
[2024-07-23 08:47] LABS: ~Lactic Acid-LAB USE ONLY 4.1 mmol/L (0.5-2.0)
[2024-07-23 09:33] LABS: Glucose, Whole Blood 193 mg/dL (60-115)
[2024-07-23 10:40] LABS: Glucose, Whole Blood 163 mg/dL (60-115)
[2024-07-23 11:51] LABS: Glucose, Whole Blood 182 mg/dL (60-115)
[2024-07-23 12:29] LABS: Glucose, Whole Blood 247 mg/dL (60-115)
--- NOTE | 2024-07-23 13:31 | MHC.CM.PN ---
Met with patient and daughter, Leeann, with the assistance of the care professional. Patient lives with her daughter, uses a wheelchair for long distances when out of the home, and receives [employer] hours through [facility]. PCP is at [facility] in [place]. But Leeann does not know the provider's name. Patient has a history of dementia. Patient is able to name her daughter, Leeann, as her HCP. HCP completed. T/W signed as principal. 2 other witnessed signed HCP. Original given to patient. Copy placed in chart. Leeann does not feel patient would be appropriate for STR and anticipates patient will return home. Referral made to [facility] for [facility]. Patient will need BLS transport when medically stable. Patient and Leeann verbalize understanding and agreement. Continue to monitor for d/c needs.
[2024-07-23 13:44] LABS: Glucose, Whole Blood 211 mg/dL (60-115)
[2024-07-23 14:37] LABS: Glucose, Whole Blood 161 mg/dL (60-115)
[2024-07-23 15:20] LABS: Anion Gap 12 (12-20); Blood Urea Nitrogen 59 mg/dL (9-16); Calcium 10.1 mg/dL (8.4-10.2); Carbon Dioxide 17 mmol/L (22-29); Chloride 139 mmol/L (96-108); Creatinine Clr Calc Pharmacy 22.4; Estimated Glomerular Filt Rate 23; Glucose Random 182 mg/dL (60-115); Potassium 3.4 mmol/L (3.3-5.1); Sodium 165 mmol/L (135-145)
[2024-07-23 15:36] LABS: Glucose, Whole Blood 138 mg/dL (60-115)
[2024-07-23 16:34] LABS: Glucose, Whole Blood 113 mg/dL (60-115)
[2024-07-23 17:39] LABS: Glucose, Whole Blood 155 mg/dL (60-115)
--- NOTE | 2024-07-23 17:56 | PC.NURSE ---
Assumed care of patient 0700 Insulin gtt running with Q1HR POC glucose for HHS. gtt titrated per protocol. Morning labs showed sodium level 166 and POC glucose in 200-300 range. See EMR. notified. New orders for D5W@125 ml/hr given. Pt provided full bed bath with CHG wipes. Barrier cream applied to maceration of b/l buttocks. [address] CDI. notified of low urine output 5-15 ml/hr. Pt passed 2 bowel movements this shift, incontinent. CM at bedside spoke with patient daughter regarding home services and future DC planning 14:30 Sodium level 165. notified, continued D5W IVF. Pt turned and repositioned Q2HR. High fall precautions in place. Camera in room for occasional pulling of SaO2 probe and BP cuff.
[2024-07-23 18:36] LABS: Glucose, Whole Blood 172 mg/dL (60-115)
[2024-07-23 19:36] LABS: Glucose, Whole Blood 178 mg/dL (60-115)
[2024-07-23 20:24] LABS: Anion Gap 15 (12-20); Blood Urea Nitrogen 57 mg/dL (9-16); Calcium 9.2 mg/dL (8.4-10.2); Carbon Dioxide 15 mmol/L (22-29); Chloride 136 mmol/L (96-108); Creatinine Clr Calc Pharmacy 24.1; Estimated Glomerular Filt Rate 25; Glucose Random 224 mg/dL (60-115); Magnesium 2.4 mg/dL (1.6-2.6); Phosphorus 2.6 mg/dL (2.7-4.5); Sodium 162 mmol/L (135-145)
[2024-07-23 20:35] LABS: Glucose, Whole Blood 226 mg/dL (60-115)
[2024-07-23] MEDS: Potassium Phosphate/NS 15 MMOL/250 ML PLAST..BAG 62.5 MMOL IV (20:44)
[2024-07-23 21:33] LABS: Glucose, Whole Blood 213 mg/dL (60-115)
[2024-07-23 22:33] LABS: Glucose, Whole Blood 192 mg/dL (60-115)
[2024-07-23 23:51] LABS: Glucose, Whole Blood 176 mg/dL (60-115)
[2024-07-24] VITALS (22 sets, daily range): BP systolic 121–161; BP diastolic 40–73; PULSE 69–98; RESP 10–21; TEMP 36.3–37; O2SAT 92–100; BMI 39.4
[2024-07-24 00:44] LABS: Glucose, Whole Blood 185 mg/dL (60-115)
[2024-07-24 01:50] LABS: Glucose, Whole Blood 147 mg/dL (60-115)
[2024-07-24 02:40] LABS: Glucose, Whole Blood 148 mg/dL (60-115)
[2024-07-24 03:51] LABS: Glucose, Whole Blood 155 mg/dL (60-115)
[2024-07-24 05:23] LABS: Glucose, Whole Blood 168 mg/dL (60-115)
[2024-07-24 05:39] LABS: Basophils Absolute Auto 0.1 X10*3/uL (0.0-0.2); Basophils Percent Auto 0.8 % (0-2); Eosinophils Absolute Auto 0.2 X10*3/uL (0.0-0.4); Eosinophils Percent Auto 2.3 % (0-4); Hematocrit 38.8 % (37.0-47.0); Hemoglobin 12.3 g/dl (12.0-16.0); Imm Gran Abs Auto 0.05 X10*3/uL (0.00-0.03); Imm Gran Pct Auto 0.5 % (0.0-0.4); Lymphocytes Absolute Auto 2.2 X10*3/uL (1.2-4.9); Lymphocytes Percent Auto 22.8 % (20-40); MANUAL DIFF FLAG NO; Mean Corpuscular HGB Conc 31.7 g/dl (31.0-35.0); Mean Corpuscular Hemoglobin 28.1 pg (27.0-33.0); Mean Corpuscular Volume 88.6 fL (80.0-98.0); Mean Platelet Volume 12.6 fL (9.4-12.3); Monocytes Absolute Auto 0.9 X10*3/uL (0.1-1.2); Monocytes Percent Auto 9.6 % (2-11); Neutrophils Absolute Auto 6.2 x10*3/uL (2.0-8.3); PLT CLUMP 1; Red Blood Count 4.38 X10*6/uL (4.20-5.50); Red Cell Distribution Width 14.6 % (11.0-16.0); SCAN SMEAR FLAG 1; White Blood Count 9.6 X10*3/uL (4.8-10.8)
[2024-07-24 05:47] LABS: Anion Gap 14 (12-20); Blood Urea Nitrogen 44 mg/dL (9-16); Carbon Dioxide 15 mmol/L (22-29); Chloride 131 mmol/L (96-108); Creatinine Clr Calc Pharmacy 28.6; Estimated Glomerular Filt Rate 30; Glucose Random 200 mg/dL (60-115); Magnesium 2.2 mg/dL (1.6-2.6); Phosphorus 3.9 mg/dL (2.7-4.5); Potassium 3.4 mmol/L (3.3-5.1); Sodium 157 mmol/L (135-145)
[2024-07-24 05:51] LABS: Platelet Count 113 X10*3/uL (160-400)
[2024-07-24 06:05] LABS: Glucose, Whole Blood 182 mg/dL (60-115)
--- NOTE | 2024-07-24 06:05 | PC.NURSE ---
Upon initial assessment with help of wildlife veterinarian services, patient is alert to self, able to track speaker and AU. Patient still largely nonverbal, with occasional speech that is either nonsensical or unintelligible. Occasionally able to follow commands and nod/shake head for yes/no. SR on tele, HR 70s-80s. Lung sounds clear with?dim bases, remains on room air. Abdomen soft and nontender, active bowel sounds x4. Patient remains NPO pending swallow eval. Correa catheter remains in place draining concentrated dark yellow urine. UOP remains 5-15mL/hr. Skin warm and dry, foams with barrier cream to bilateral outer buttocks clean dry and intact. Patient sodium persistently elevated, continues on D5W?per MAR. Insulin gtt running per JUL, POC Q1HR ongoing. Patient repositioned Q2HR, bed locked in lowest position, bed alarm on, avasys camera in place for safety.?
[2024-07-24 06:57] LABS: Glucose, Whole Blood 160 mg/dL (60-115)
[2024-07-24 08:38] LABS: Glucose, Whole Blood 192 mg/dL (60-115)
[2024-07-24] MEDS: Heparin Sodium,Porcine 5,000 UNIT/ML VIAL 5000 UNIT SUBCUT ×3 (08:55→19:56)
[2024-07-24] MEDS: Potassium Chloride/H20 10 MEQ/100 ML PIGGYBACK 100 MEQ IV ×3 (08:56→13:05)
[2024-07-24] MEDS: 0.9 % Sodium Chloride Flush 3 ML SYRINGE IVFLUSH ×3 (09:00→16:53)
--- NOTE | 2024-07-24 09:18 | P.PNCC_ITS ---
Subjective Subjective Date of Service: 07/24/24 Critical Care Time (minutes): 35 Comment: hypernatremia improving, down to 156 Physical Exam 2 Vital Signs: Vital Signs: Last Vital Signs Temp 97.3 F 07/24/24 08:00 Pulse 79 07/24/24 08:00 Resp 14 07/24/24 08:00 BP 135/73 07/24/24 08:00 Pulse Ox 97 07/24/24 08:00 O2 Del Method Room Air 07/24/24 08:00 BMI result Body Mass Index 39.4 Objective Data Labs 07/24/24 05:15 07/24/24 11:36 Labs: Laboratory Results - last 24 hr 07/23/24 07/23/24 07/23/24 09:28 10:37 11:47 WBC RBC Hgb Hct MCV MCH MCHC RDW Plt Count MPV Immature Gran % (Auto) Neut % (Auto) Lymph % (Auto) [place] % (Auto) Eos % (Auto) Baso % (Auto) Lymph # (Auto) [place] # (Auto) Eos # (Auto) Baso # (Auto) Abs Immat Gran (auto) Absolute Neuts (auto) Absolute Nucleated RBC Nucleated RBC % (auto) Sodium Potassium Chloride Carbon Dioxide Anion Gap BUN Creatinine Estim Creat Clear Calc Estimated GFR POC Glucose 193 H 163 H 182 H Random Glucose Calcium Phosphorus Magnesium Albumin 07/23/24 07/23/24 07/23/24 12:25 13:40 14:30 WBC RBC Hgb Hct MCV MCH MCHC RDW Plt Count MPV Immature Gran % (Auto) Neut % (Auto) Lymph % (Auto) [place] % (Auto) Eos % (Auto) Baso % (Auto) Lymph # (Auto) [place] # (Auto) Eos # (Auto) Baso # (Auto) Abs Immat Gran (auto) Absolute Neuts (auto) Absolute Nucleated RBC Nucleated RBC % (auto) Sodium 165 H* Potassium 3.4 Chloride 139 H Carbon Dioxide 17 L Anion Gap 12 BUN 59 H Creatinine 2.17 H Estim Creat Clear Calc 22.4 Estimated GFR 23 POC Glucose 247 H 211 H Random Glucose 182 H Calcium 10.1 Phosphorus Magnesium Albumin 07/23/24 07/23/24 07/23/24 14:32 15:32 16:30 WBC RBC Hgb Hct MCV MCH MCHC RDW Plt Count MPV Immature Gran % (Auto) Neut % (Auto) Lymph % (Auto) [place] % (Auto) Eos % (Auto) Baso % (Auto) Lymph # (Auto) [place] # (Auto) Eos # (Auto) Baso # (Auto) Abs Immat Gran (auto) Absolute Neuts (auto) Absolute Nucleated RBC Nucleated RBC % (auto) Sodium Potassium Chloride Carbon Dioxide Anion Gap BUN Creatinine Estim Creat Clear Calc Estimated GFR POC Glucose 161 H 138 H 113 Random Glucose Calcium Phosphorus Magnesium Albumin 07/23/24 07/23/24 07/23/24 17:37 18:33 19:33 WBC RBC Hgb Hct MCV MCH MCHC RDW Plt Count MPV Immature Gran % (Auto) Neut % (Auto) Lymph % (Auto) [place] % (Auto) Eos % (Auto) Baso % (Auto) Lymph # (Auto) [place] # (Auto) Eos # (Auto) Baso # (Auto) Abs Immat Gran (auto) Absolute Neuts (auto) Absolute Nucleated RBC Nucleated RBC % (auto) Sodium Potassium Chloride Carbon Dioxide Anion Gap BUN Creatinine Estim Creat Clear Calc Estimated GFR POC Glucose 155 H 172 H 178 H Random Glucose Calcium Phosphorus Magnesium Albumin 07/23/24 07/23/24 07/23/24 19:51 20:31 21:30 WBC RBC Hgb Hct MCV MCH MCHC RDW Plt Count MPV Immature Gran % (Auto) Neut % (Auto) Lymph % (Auto) [place] % (Auto) Eos % (Auto) Baso % (Auto) Lymph # (Auto) [place] # (Auto) Eos # (Auto) Baso # (Auto) Abs Immat Gran (auto) Absolute Neuts (auto) Absolute Nucleated RBC Nucleated RBC % (auto) Sodium 162 H* Potassium 4.0 Chloride 136 H Carbon Dioxide 15 L Anion Gap 15 BUN 57 H Creatinine 2.02 H Estim Creat Clear Calc 24.1 Estimated GFR 25 POC Glucose 226 H 213 H Random Glucose 224 H Calcium 9.2 D Phosphorus 2.6 L Magnesium 2.4 Albumin 07/23/24 07/23/24 07/24/24 22:28 23:35 00:40 WBC RBC Hgb Hct MCV MCH MCHC RDW Plt Count MPV Immature Gran % (Auto) Neut % (Auto) Lymph % (Auto) [place] % (Auto) Eos % (Auto) Baso % (Auto) Lymph # (Auto) [place] # (Auto) Eos # (Auto) Baso # (Auto) Abs Immat Gran (auto) Absolute Neuts (auto) Absolute Nucleated RBC Nucleated RBC % (auto) Sodium Potassium Chloride Carbon Dioxide Anion Gap BUN Creatinine Estim Creat Clear Calc Estimated GFR POC Glucose 192 H 176 H 185 H Random Glucose Calcium Phosphorus Magnesium Albumin 07/24/24 07/24/24 07/24/24 01:46 02:35 03:47 WBC RBC Hgb Hct MCV MCH MCHC RDW Plt Count MPV Immature Gran % (Auto) Neut % (Auto) Lymph % (Auto) [place] % (Auto) Eos % (Auto) Baso % (Auto) Lymph # (Auto) [place] # (Auto) Eos # (Auto) Baso # (Auto) Abs Immat Gran (auto) Absolute Neuts (auto) Absolute Nucleated RBC Nucleated RBC % (auto) Sodium Potassium Chloride Carbon Dioxide Anion Gap BUN Creatinine Estim Creat Clear Calc Estimated GFR POC Glucose 147 H 148 H 155 H Random Glucose Calcium Phosphorus Magnesium Albumin 07/24/24 07/24/24 07/24/24 05:15 05:17 06:00 WBC 9.6 RBC 4.38 Hgb 12.3 Hct 38.8 MCV 88.6 MCH 28.1 MCHC 31.7 RDW 14.6 Plt Count 113 L D MPV 12.6 H Immature Gran % (Auto) 0.5 H Neut % (Auto) 64.0 Lymph % (Auto) 22.8 [place] % (Auto) 9.6 Eos % (Auto) 2.3 Baso % (Auto) 0.8 Lymph # (Auto) 2.2 [place] # (Auto) 0.9 Eos # (Auto) 0.2 Baso # (Auto) 0.1 Abs Immat Gran (auto) 0.05 H Absolute Neuts (auto) 6.2 Absolute Nucleated RBC 0.000 Nucleated RBC % (auto) 0.0 Sodium 157 H Potassium 3.4 Chloride 131 H Carbon Dioxide 15 L Anion Gap 14 BUN 44 H Creatinine 1.72 H Estim Creat Clear Calc 28.6 Estimated GFR 30 POC Glucose 168 H 182 H Random Glucose 200 H Calcium 9.0 Phosphorus 3.9 Magnesium 2.2 Albumin 3.0 L 07/24/24 07/24/24 06:53 08:35 WBC RBC Hgb Hct MCV MCH MCHC RDW Plt Count MPV Immature Gran % (Auto) Neut % (Auto) Lymph % (Auto) [place] % (Auto) Eos % (Auto) Baso % (Auto) Lymph # (Auto) [place] # (Auto) Eos # (Auto) Baso # (Auto) Abs Immat Gran (auto) Absolute Neuts (auto) Absolute Nucleated RBC Nucleated RBC % (auto) Sodium Potassium Chloride Carbon Dioxide Anion Gap BUN Creatinine Estim Creat Clear Calc Estimated GFR POC Glucose 160 H 192 H Random Glucose Calcium Phosphorus Magnesium Albumin Microbiology Microbiology Results: Microbiology 07/22/24 00:00 Urine Catheterized - Correa Catheter Urine Culture - Preliminary Culture in progress. 07/23/24 01:16 Blood - Venous Blood Culture - Preliminary No growth after 24 hours. 07/23/24 01:16 Blood - Venous Blood Culture - Preliminary No growth after 24 hours. Progress Note: A&P Assessment and plan (1) HHS (hypothenar hammer syndrome): Status: Acute (2) Hyperosmolar hyperglycemic state (HHS): Status: Acute (3) Acute UTI: Status: Acute (4) Sepsis: Status: Acute Plan Acute encephalopathy: secondary to metabolic encephalopathy and THC gummies Has underlying baseline decline in mental status where she is unable to talk but able to understand head CT normal on admission Acute hypernatremia: sodium down to 156 on D5W drip, will switch to half normal saline We will repeat a BMP HHS: improved, on D5W for hypernatreamia needing insulin drip will switch to SQ insulin once insulin drip stopped NPO pending swallow hypothyroidism: TSH 9.7 we will start her on levothyroxine Prophylaxis: heparin Quality Stroke Does the patient have a stroke diagnosis?: No VTE Prior VTE?: No VTE Risk Level:: Medical - moderate - high VTE Device Contraindication: N/A - Device Ordered VTE Drug Contraindication: N/A - Med Ordered
[2024-07-24 09:24] LABS: Glucose, Whole Blood 205 mg/dL (60-115)
[2024-07-24 10:25] LABS: Glucose, Whole Blood 249 mg/dL (60-115)
[2024-07-24] MEDS: Sodium Chloride 0.45 % 1,000 ML 100 ML IVCONT ×2 (11:07→20:25)
[2024-07-24 11:14] LABS: Glucose, Whole Blood 277 mg/dL (60-115)
[2024-07-24 12:32] LABS: Anion Gap 13 (12-20); Blood Urea Nitrogen 41 mg/dL (9-16); Calcium 8.7 mg/dL (8.4-10.2); Carbon Dioxide 17 mmol/L (22-29); Chloride 127 mmol/L (96-108); Creatinine Clr Calc Pharmacy 29.9; Estimated Glomerular Filt Rate 31; Glucose Random 361 mg/dL (60-115); Potassium 4.1 mmol/L (3.3-5.1); Sodium 153 mmol/L (135-145)
[2024-07-24] MEDS: Insulin Lispro 100 UNIT/ML 3 ML VIAL SUBCUT ×3 (13:05→20:42)
--- NOTE | 2024-07-24 13:48 | MHC.CM.PN ---
Pt minimally conversant at baseline: Difficult to understand even with [place] language assistance. Pt from home w/family care. New referral for [facility]. Pt will need S transportation to home. CM to follow
[2024-07-24] MEDS: Potassium Chloride/H20 10 MEQ/100 ML PIGGYBACK 50 MEQ IV (14:40)
[2024-07-24] MEDS: Insulin Glargine,Hum.rec.anlog 100 UNIT/ML 10 ML VIAL 10 UNIT SUBCUT (14:41)
--- NOTE | 2024-07-24 15:18 | MHC.SL.SWA ---
Speech Pathologist Impression: Mild to moderate oropharyngeal dysphagia characterized by slow coordination of transit resulting in cough with thins and NTL. Solids not trialed during bedside evaluation. Recc HTL and NDD1 to reduce risk for aspriation, VEHICLE FARE COLLECTOR will follow and advance as appropriate. Risk of Aspiration Due to: Reduced Cognition Dysphasia Diet Status: Liquid Consistency and Strategies for Safe Swallow: Liquid Intake Recommendation: Honey Thick Liquid Intake Strategies: Small Sips No Straws Solid Food Consistency: Dietary Recommendations: Pureed (NDD1) Additional Modifications to Solid Foods: Aspiration precautions, 1:1 feeeding Oral Medication Intake: Crushed with Puree Please contact the pharmacy regarding appropriate crushable or liquid drug formulations that are available whenever modified delivery is recommended. Compensatory Strategies and Precautions to be Taken for Safe Swallow: Sitting Upright (90 deg) Liquids from Cup Small Bites and Sips Rate of Ingestion Change Supervision While Eating and Drinking for Safe Swallow: Total Supervision (1:1) Foods to Avoid: Swallowing Recommended Treatments: Compensatory Strategies Recommendation for Speech: Comment: Pt presents with mild to moderate oropharyngeal dysphagia characterized by extended oral transit phase (holding liquids), with no anterior loss, but delayed trigger of pharyngeal swallow results in cough on thins and NTL. Pt observed to be impulsive with intake, trying to coordinate consecutive sips of liquid without pause. Pt daughter noted pt was thirsty as she had not had PO in several days. Mild to moderate oropharyngeal dysphagia presentation considered to be result of AMS, as similar difficulties with timely phase transition (from oral to pharyngeal) occurred with HTL and pureess. With HTL and purees pt able to remain more safe d/t slowed viscosity of thickened, homogenous consistencies as she more efficiently controls oropharyngeal musculature. VEHICLE FARE COLLECTOR will follow closely. Frequency/Duration: Date Range for Service Req: Timeline to reassess: Security Public Safety Officer Clinican/Clinical Fellow: No Supervisory Statement: I have reviewed and agree with the student/clinical fellow's documentation: N/A Speech Language Pathologist: Sandra Novak M.S., CCC-VEHICLE FARE COLLECTOR
[2024-07-24 15:35] LABS: Anion Gap 12 (12-20); Blood Urea Nitrogen 40 mg/dL (9-16); Calcium 8.7 mg/dL (8.4-10.2); Carbon Dioxide 17 mmol/L (22-29); Chloride 126 mmol/L (96-108); Creatinine Clr Calc Pharmacy 33.2; Estimated Glomerular Filt Rate 35; Glucose Random 258 mg/dL (60-115); Potassium 3.9 mmol/L (3.3-5.1); Sodium 151 mmol/L (135-145)
[2024-07-24 16:16] LABS: Glucose, Whole Blood 233 mg/dL (60-115)
--- NOTE | 2024-07-24 18:51 | PM.EVENT ---
Event Note Date of Service: 07/24/24 Event Note: Transfered out of ICU, discussed with finance lecturer, plan as outline by finance lecturer. Adding nephrolog consult and repeat labs more frequent, every 4 to 6 hours. Med rec completed Time Spent With Patient Time: Total time managing care of this patient today ____ minutes.
[2024-07-24] MEDS: cefTRIAXone sodium 1 GM VIAL IVPUSH (19:54)
[2024-07-24 20:34] LABS: Glucose, Whole Blood 170 mg/dL (60-115)
[2024-07-24 20:48] LABS: Anion Gap 13 (12-20); Carbon Dioxide 17 mmol/L (22-29); Chloride 125 mmol/L (96-108); Potassium 4.1 mmol/L (3.3-5.1); Sodium 151 mmol/L (135-145)
[2024-07-25 03:45] VITALS: BP 123/78; PULSE 77; RESP 18; TEMP 36.3; O2SAT 93
[2024-07-25] MEDS: Levothyroxine Sodium 150 MCG TABLET PO (05:04)
[2024-07-25] MEDS: Sodium Chloride 0.45 % 1,000 ML 100 ML IVCONT ×2 (05:04→20:26)
[2024-07-25 06:00] VITALS: BMI 37.9
[2024-07-25 07:15] VITALS: BP 141/62; PULSE 86; RESP 16; TEMP 36; O2SAT 94
[2024-07-25 07:17] LABS: Glucose, Whole Blood 234 mg/dL (60-115)
[2024-07-25 07:29] LABS: Anion Gap 11 (12-20); Blood Urea Nitrogen 26 mg/dL (9-16); Calcium 8.7 mg/dL (8.4-10.2); Carbon Dioxide 22 mmol/L (22-29); Chloride 119 mmol/L (96-108); Creatinine Clr Calc Pharmacy 45.6; Estimated Glomerular Filt Rate 52; Glucose Random 227 mg/dL (60-115); Potassium 3.7 mmol/L (3.3-5.1); Sodium 148 mmol/L (135-145)
[2024-07-25] MEDS: Insulin Lispro 100 UNIT/ML 3 ML VIAL SUBCUT ×4 (07:46→20:16)
[2024-07-25] MEDS: Omeprazole 20 MG CAPSULE.DR PO (07:47)
[2024-07-25] MEDS: Heparin Sodium,Porcine 5,000 UNIT/ML VIAL 5000 UNIT SUBCUT ×3 (07:47→20:16)
[2024-07-25] MEDS: Atorvastatin Calcium 10 MG TABLET PO (07:47)
[2024-07-25] MEDS: amLODIPine Besylate 5 MG TABLET PO (07:47)
[2024-07-25] MEDS: Aspirin Enteric Coated 81 MG TABLET.DR PO (07:47)
[2024-07-25] MEDS: Insulin Glargine,Hum.rec.anlog 100 UNIT/ML 10 ML VIAL 10 UNIT SUBCUT (07:47)
--- NOTE | 2024-07-25 07:50 | HO.PM.IMPN ---
Subjective Subjective Date of Service: 07/25/24 Interval History: hypernatremia Review of Systems awake ,seems nonverbal at baseline. seems awake , does not seems to be in disconfort. Physical Exam Vital Signs: Vital Signs: Last Vital Signs Temp 96.8 F 07/25/24 07:15 Pulse 86 07/25/24 07:15 Resp 16 07/25/24 07:15 BP 141/62 H 07/25/24 07:15 Pulse Ox 94 07/25/24 07:15 O2 Del Method Room Air 07/25/24 07:15 BMI result Body Mass Index 37.9 Appearance: awake . cvs: rrr, [id number] . res: air entry fair, no rales or wheezing. abd: no rebound or guarding ,nt, bs present. ext pulses present , no cyanosis. neuro: axo3 , nonfocal. Objective Data Active Medications Amlodipine Besylate (Amlodipine Besylate 5 Mg Tablet) 5 mg PO DAILY [facility]; Protocol Aspirin (Aspirin Enteric Coated 81 Mg Tablet.Dr) 81 mg PO DAILY [facility] Atorvastatin Calcium (Atorvastatin Calcium 10 Mg Tablet) 10 mg PO DAILY [facility] Bisacodyl (Bisacodyl 10 Mg Supp.Rect) 10 mg [place] BEDTIME PRN PRN Reason: Constipation Ceftriaxone Sodium (Ceftriaxone Sodium 1 Gm Vial) 1 gm IVPUSH BEDTIME [facility] Last Admin: 07/24/24 19:54 Dose: 1 gm Documented By: MARYELLEN Dextrose (Dextrose 50 % 25 Gm/50 Ml Syringe) 25 gm IVPUSH Q30M PRN PRN Reason: BG < 70 Dextrose (Dextrose 50 % 25 Gm/50 Ml Syringe) 25 gm IVPUSH Q15M PRN; Protocol PRN Reason: per Hypoglycemia Standing Ord. Glucose (Glucose Gel 15 Gm Gel..Gram.) 15 gm PO Q15M PRN; Protocol PRN Reason: per Hypoglycemia Standing Ord. Heparin Sodium (Porcine) (Heparin Sodium,Porcine 5,000 Unit/Ml Vial) 5,000 unit SUBCUT TID [facility] Last Admin: 07/24/24 19:56 Dose: 5,000 unit Documented By: MARYELLEN Sodium Chloride (Sodium Chloride 0.45 %) 1,000 mls @ 100 mls/hr IVCONT .Q10H [facility] Last Admin: 07/25/24 05:04 Dose: 100 mls/hr Documented By: MAYO Insulin Glargine (Insulin Glargine,Hum.Rec.Anlog 100 Unit/Ml 10 Ml Vial) 10 unit SUBCUT DAILY [facility] Last Admin: 07/24/24 14:41 Dose: 10 unit Documented By: ALBERTO Insulin Human Lispro (Insulin Lispro 100 Unit/Ml 3 Ml Vial) 0 unit SUBCUT QIDACHS [facility]; Protocol Stop: 07/25/24 10:46 Last Admin: 07/24/24 20:42 Dose: 2 unit Documented By: MAYO Levothyroxine Sodium (Levothyroxine Sodium 150 Mcg Tablet) 150 mcg PO DAILY@0600 [facility] Last Admin: 07/25/24 05:04 Dose: 150 mcg Documented By: MAYO Omeprazole (Omeprazole 20 Mg Capsule.) 20 mg PO DAILY [facility] Sodium Chloride (0.9 % Sodium Chloride Flush 3 Ml Syringe) 3 ml IVFLUSH QSHIFT [facility] Last Admin: 07/24/24 23:29 Dose: Not Given Documented By: MAYO Non-Admin Reason: IV Running Labs 07/24/24 05:15 07/25/24 05:52 Labs: Laboratory Results - last 24 hr 07/24/24 07/24/24 07/24/24 08:35 09:20 10:22 Anion Gap Estim Creat Clear Calc Estimated GFR POC Glucose 192 H 205 H 249 H Random Glucose Calcium 07/24/24 07/24/24 07/24/24 11:10 11:36 15:11 Anion Gap 13 12 Estim Creat Clear Calc 29.9 33.2 Estimated GFR 31 35 POC Glucose 277 H Random Glucose 361 H* 258 H Calcium 8.7 8.7 07/24/24 07/24/24 07/25/24 16:13 20:28 05:52 Anion Gap 13 11 L Estim Creat Clear Calc 45.6 Estimated GFR 52 POC Glucose 233 H 170 H Random Glucose 227 H Calcium 8.7 07/25/24 07:11 Anion Gap Estim Creat Clear Calc Estimated GFR POC Glucose 234 H Random Glucose Calcium Microbiology Microbiology Results: Microbiology 07/23/24 01:16 Blood Culture - Preliminary Blood - Venous No growth after 48 hours. 07/23/24 01:16 Blood Culture - Preliminary Blood - Venous No growth after 48 hours. 07/22/24 00:00 Urine Culture - Preliminary Urine Catheterized - Correa Catheter Culture in progress. Assessment and Plan (1) Hypernatremia: Status: Acute (2) Hyperosmolar hyperglycemic state (HHS): Status: Acute Plan 68-year-old female past medical history significant for advanced Alzheimer dementia Acute encephalopathy: secondary to metabolic encephalopathy and THC gummies as per icu documentation -seems nonverbal head CT normal on admission Acute hypernatremia: was on D5W drip, then half normal saline sodium 148 moniter BMP dm with HHS: improved, on D5W for hypernatremia needing insulin drip hhs improved continue lantus 10 units ,fs with sliding scale coverage. seen by MEDICAL HEALTH RESEARCHER -added diet . possible uti: urine culture : gram negative alaina blood culture neg@48hrs continue ceftriaxone. hypothyroidism: TSH 9.7 Continue levothyroxine Hypertension: added amlodipine 5 mg qd back. Quality Stroke Does the patient have a stroke diagnosis?: No VTE Prior VTE?: No VTE Risk Level:: Medical - moderate - high VTE Device Contraindication: N/A - Device Ordered VTE Drug Contraindication: N/A - Med Ordered
--- NOTE | 2024-07-25 10:04 | PM.CNNEP ---
History of Present Illness Reason for Consult Consult date: 07/25/24 Reason for consult: OSMAN Chief Complaint Chief complaint: HHS History of Present Illness Narrative: 68 year old female with a past medical history of diabetes mellitus? Alzheimer?s dementia, hypertension,? hyperlipidemia and hypothyroidism? who presented to the emergency department due to altered mental status.? According to daughter, who is also patient HOSIERY BAGGER,? patient has a diagnosis of Alzheimer?s dementia,? in the last month? patient?s speech/mentation/ambulation has decreased,? reports she? became nonverbal 2-3 days ago.? She reports patient has also had a hard time taking her meds, ? states she has tried to crush them but patient is still not able to take the meds,? daughter is unsure for how long patient has not been taking her meds.? Also admits to giving her THC gummies,? to help her sleep.? Review of Systems Constitutional: Denies fever(s) and Denies weight loss Cardiovascular: Denies chest pain Respiratory: Denies cough and Denies hemoptysis Gastrointestinal: Denies abdominal pain, Denies diarrhea and Denies nausea Musculoskeletal: Denies back pain Denies focal weakness PMFSH Past Medical History Medical History (Updated 07/25/24 @ 10:05 by Ross Rosas MD) Hypothyroidism Hyperlipidemia Hypertension Social History Social History Household Members: Family and Children Household Members Other:: Daughter and Daughter Housing: Apartment Do you presently have visiting nurse or other home services: Yes (Daughter is HOSIERY BAGGER) Patient Tobacco Use Status: Never used Tobacco Second Hand Smoke Exposure: Yes Use of substances other than those prescribed or required for medical reasons: Yes Substance Use Type: Marijuana Currently Displaying Signs/Symptoms of Drug Intoxication Withdrawal: No Advance Directives: Yes Advance Directives Information Provided: Yes Advance Directives on File: Yes Advance Directives Date on File: 07/23/24 Recently lost weight without trying: No Patient : No : No service: No Meds Allergies Allergy/AdvReac Type Severity Reaction Status Date / Time No Known Allergies Allergy Verified 07/22/24 19:36 Active Medications: Current Medications Amlodipine Besylate (Amlodipine Besylate 5 Mg Tablet) 5 mg PO DAILY [facility]; Protocol Last Admin: 07/25/24 07:47 Dose: 5 mg Aspirin (Aspirin Enteric Coated 81 Mg Tablet.) 81 mg PO DAILY [facility] Last Admin: 07/25/24 07:47 Dose: 81 mg Atorvastatin Calcium (Atorvastatin Calcium 10 Mg Tablet) 10 mg PO DAILY [facility] Last Admin: 07/25/24 07:47 Dose: 10 mg Bisacodyl (Bisacodyl 10 Mg Supp.Rect) 10 mg [place] BEDTIME PRN PRN Reason: Constipation Ceftriaxone Sodium (Ceftriaxone Sodium 1 Gm Vial) 1 gm IVPUSH BEDTIME [facility] Last Admin: 07/24/24 19:54 Dose: 1 gm Dextrose (Dextrose 50 % 25 Gm/50 Ml Syringe) 25 gm IVPUSH Q30M PRN PRN Reason: BG < 70 Dextrose (Dextrose 50 % 25 Gm/50 Ml Syringe) 25 gm IVPUSH Q15M PRN; Protocol PRN Reason: per Hypoglycemia Standing Ord. Glucose (Glucose Gel 15 Gm Gel..Gram.) 15 gm PO Q15M PRN; Protocol PRN Reason: per Hypoglycemia Standing Ord. Heparin Sodium (Porcine) (Heparin Sodium,Porcine 5,000 Unit/Ml Vial) 5,000 unit SUBCUT TID [facility] Last Admin: 07/25/24 07:47 Dose: 5,000 unit Sodium Chloride (Sodium Chloride 0.45 %) 1,000 mls @ 100 mls/hr IVCONT .Q10H [facility] Last Admin: 07/25/24 05:04 Dose: 100 mls/hr Insulin Glargine (Insulin Glargine,Hum.Rec.Anlog 100 Unit/Ml 10 Ml Vial) 10 unit SUBCUT DAILY [facility] Last Admin: 07/25/24 07:47 Dose: 10 unit Insulin Human Lispro (Insulin Lispro 100 Unit/Ml 3 Ml Vial) 0 unit SUBCUT QIDACHS [facility]; Protocol Stop: 07/25/24 10:46 Last Admin: 07/25/24 07:46 Dose: 4 unit Levothyroxine Sodium (Levothyroxine Sodium 150 Mcg Tablet) 150 mcg PO DAILY@0600 [facility] Last Admin: 07/25/24 05:04 Dose: 150 mcg Omeprazole (Omeprazole 20 Mg Capsule.) 20 mg PO DAILY [facility] Last Admin: 07/25/24 07:47 Dose: 20 mg Sodium Chloride (0.9 % Sodium Chloride Flush 3 Ml Syringe) 3 ml IVFLUSH QSHIFT [facility] Last Admin: 07/25/24 07:46 Dose: Not Given Home Medications ?Medication ?Instructions ?Recorded ?Confirmed ?Last Taken ?Type amlodipine 5 mg tablet 5 mg PO DAILY 07/23/24 07/23/24 07/21/24 History aspirin 81 mg tablet,delayed 81 mg PO DAILY 07/23/24 07/23/24 07/21/24 History release atorvastatin 10 mg tablet 10 mg PO DAILY 07/23/24 07/23/24 07/21/24 History bisoprolol 10 1 tab PO DAILY 07/23/24 07/23/24 07/21/24 History mg-hydrochlorothiazide 6.25 mg tablet donepezil 10 mg tablet 10 mg PO BEDTIME 07/23/24 07/23/24 07/21/24 History glipizide 2.5 mg tablet, extended 2.5 mg PO DAILY 07/23/24 07/23/24 07/21/24 History release 24 hr levothyroxine 150 mcg tablet 150 mcg PO DAILY 07/23/24 07/23/24 07/21/24 History lisinopril 20 mg tablet 20 mg PO DAILY 07/23/24 07/23/24 07/21/24 History omeprazole 20 mg capsule,delayed 20 mg PO DAILY 07/23/24 07/23/24 07/21/24 History release Physical Exam Vital Signs: Last Vital Signs Temp 96.8 F 07/25/24 07:15 Pulse 86 07/25/24 07:15 Resp 16 07/25/24 07:15 BP 141/62 H 07/25/24 07:15 Pulse Ox 94 07/25/24 07:15 O2 Del Method Room Air 07/25/24 07:15 BMI result Body Mass Index 37.9 Neck Neck: Yes supple Resp Auscultation: clear to auscultation bilaterally Cardio Palpation: no palpable S3 Heart sounds: no rubs GI Palpation (GI): Soft to palpation Auscultation: normal bowel sounds Neuro Motor exam (neuro): no asterixis Results Lab Results 07/24/24 05:15 07/25/24 05:52 Lab results: Chemistry 07/22/24 07/22/24 07/23/24 20:13 23:40 06:20 Sodium 155 H 160 H* 166 H* Potassium 4.0 3.6 4.0 Carbon Dioxide 21 L 17 L 16 L BUN 83 H 77 H 68 H Creatinine 3.34 H 3.36 H 2.63 H Calcium 11.0 H 10.5 H 10.3 H Phosphorus 2.4 L 07/23/24 07/23/24 07/24/24 14:30 19:51 05:15 Sodium 165 H* 162 H* 157 H Potassium 3.4 4.0 3.4 Carbon Dioxide 17 L 15 L 15 L BUN 59 H 57 H 44 H Creatinine 2.17 H 2.02 H 1.72 H Calcium 10.1 9.2 D 9.0 Phosphorus 2.6 L 3.9 07/24/24 07/24/24 07/24/24 11:36 15:11 20:28 Sodium 153 H 151 H 151 H Potassium 4.1 D 3.9 4.1 Carbon Dioxide 17 L 17 L 17 L BUN 41 H 40 H Creatinine 1.64 H 1.48 H Calcium 8.7 8.7 Phosphorus 07/25/24 05:52 Sodium 148 H Potassium 3.7 Carbon Dioxide 22 BUN 26 H Creatinine 1.05 Calcium 8.7 Phosphorus Hematology 07/22/24 07/23/24 07/24/24 20:13 06:20 05:15 WBC 13.7 H 14.0 H 9.6 Hgb 15.4 14.0 12.3 Plt Count 311 188 D 113 L D Urinalysis 07/22/24 23:24 Urine Color Yellow Urine Appearance Cloudy Urine pH 5.0 Ur Specific [place] >= 1.030 H Urine Protein 30 (1+) H Urine Glucose (UA) >=1000 H Urine Ketones Negative Urine Blood Moderate (2+) H Urine Nitrite Negative Ur Leukocyte Esterase Small (1+) H Urine RBC 3-5 H Urine WBC 21-50 H Ur Squamous Epith Cells >20 Hyaline Casts 11-20 Assessment and Plan (1) Hyperosmolar hyperglycemic state (HHS): Status: Acute (2) OSMAN (acute kidney injury): Status: Acute (3) Hypernatremia: Status: Acute Plan OSMAN and hypernatremia due to hypovolemia Renal function is improving with hydration. Keep intake more than output with hypotonic fluids. Keep on half-normal saline and intake more than output Watch and replace potassium as needed No indication for dialysis. Encouraged p.o. water intake. Expect renal recovery. Procedures Date of Service Date of Service: 07/25/24
--- NOTE | 2024-07-25 10:59 | MHC.SL.SWA ---
Speech Pathologist Impression: Risk of Aspiration d/t Confusion Risk of Aspiration Due to: Reduced Cognition Dysphasia Diet Status: UPGRADE to REGULAR/THIN w/ 1:1 ASSIST Liquid Consistency and Strategies for Safe Swallow: Liquid Intake Recommendation: Thin Liquid Intake Strategies: Small Sips No Straws Solid Food Consistency: Dietary Recommendations: Regular Additional Modifications to Solid Foods: Patient w/ hx Alzheimer's dementia, pleasantly confused. Patient is impulsive and has a tendency to chug liquids. Recommend 1:1 assistance feeding and strategies to ensure slow pace: administer small bites, check oral cavity for clearance, guide patient to take small sips or pour small amount of liquid into cup to drink at a time. MAGNET PLACER to f/u 1x to monitor tolerance. Oral Medication Intake: Crushed with Puree Please contact the pharmacy regarding appropriate crushable or liquid drug formulations that are available whenever modified delivery is recommended. Compensatory Strategies and Precautions to be Taken for Safe Swallow: Sitting Upright (90 deg) No Straw Small Bites and Sips Alternate Liquids/Solids Rate of Ingestion Change Supervision While Eating and Drinking for Safe Swallow: Total Assistance (1:1) Swallowing Recommended Treatments: Compens. Strategy Educat. Recommendation for Speech: 1 f/u Information Technology Project Manager Clinican/Clinical Fellow: No Supervisory Statement: I have reviewed and agree with the student/clinical fellow's documentation: N/A Speech Language Pathologist: Cara Lowe M.A., [facility]-[employer]
[2024-07-25 11:22] LABS: Glucose, Whole Blood 248 mg/dL (60-115)
[2024-07-25 12:00] VITALS: BP 167/76; PULSE 106; RESP 18; TEMP 36.1
--- NOTE | 2024-07-25 13:03 | P.CDIM_ITS ---
PROVIDER RESPONSE TEXT: To clarify, the appropriate diagnosis supported by the clinical indicators: Diagnosis was present on admission and is now resolved QUERY TEXT: PHYSICIAN'S DOCUMENTATION REQUEST Date of Query: 07/25/2024 11:25 AM EST Patient Name: Jennifer Newsome Admit Date: 07/23/2024 Dear Chantel Duarte MD, A review of the medical record indicates additional documentation may be needed. Please review below and update the documentation accordingly. Clinical Indicators: H&P dated 07/23/24 - Sepsis: patient has elevated lactic, but no evidence of septic shock. Cause likely UTI. Treated with Ceftriaxone in the Ed. Altered mental status/WBC 14.0/LA 4.0/RR 22 ICU progress note within the Assessment and Plan 07/24/24 - Sepsis The diagnosis of Sepsis was documented but is not consistently noted in subsequent documentation. Please clarify the following: Diagnosis was present on admission and is now resolved Diagnosis was present on admission and is still being monitored, evaluated, or treated Diagnosis was ruled out Diagnosis is still a likely, suspected, probable diagnosis Other (explain) Clinically unable to determine (explain) Thank you, Sowmya Alonso, CCS, CDIS Use of terms such as suspected, likely, concern for, or probable (associated with a specific diagnosi s that is being evaluated, monitored, or treated as if it exists) are acceptable and can be coded in the inpatient se tting, when documented at the time of discharge. Please use your independent medical judgment in providing your response. THIS QUERY IS PART OF THE PERMANENT MEDICAL RECORD
--- NOTE | 2024-07-25 13:05 | P.CDIM_ITS ---
PROVIDER RESPONSE TEXT: To clarify, the appropriate diagnosis supported by the clinical indicators: Obesity Due to excess calories QUERY TEXT: PHYSICIAN'S DOCUMENTATION REQUEST Date of Query: 07/25/2024 11:31 AM EST Patient Name: Jennifer Newsome Admit Date: 07/23/2024 Dear Chantel Duarte MD, A review of the medical record indicates additional documentation may be needed. Please review below and update the documentation accordingly. Clinical Indicators: Height: 4ft 9in Weight: 79.5kg BMI: 37.9 Other Clinical Notes Supporting Significance of the BMI: Nursing notes Height and Weight: Obese Class II If possible, please provide an associated diagnosis related to the abnormal BMI, such as: Obesity Due to excess calories Obesity Drug induced Obesity Due to other cause Specify the other cause Severe or Morbid Obesity Other (explain) Clinically unable to determine (explain) Thank you, Sowmya Alonso, CCS, CDIS Use of terms such as suspected, likely, concern for, or probable (associated with a specific diagnosi s that is being evaluated, monitored, or treated as if it exists) are acceptable and can be coded in the inpatient se tting, when documented at the time of discharge. Please use your independent medical judgment in providing your response. THIS QUERY IS PART OF THE PERMANENT MEDICAL RECORD
[2024-07-25 15:21] VITALS: BP 126/55; PULSE 88; RESP 18; TEMP 36.3; O2SAT 93
[2024-07-25 16:06] LABS: Glucose, Whole Blood 243 mg/dL (60-115)
--- NOTE | 2024-07-25 16:50 | HO.WOUND ---
Wound Consult: Initial 68yr old female admitted to [facility] [place] on - See progress notes and H&P for detailed history.? Wound consult placed for buttock.? Patient agreeable to assessment and photo documentation.? Buttock Etiology: ??intact no injury noted Wound Bed: intact pink blanchable tissue Drainage / Odor: NOne Tish wound: ? No Induration, Fluctuance or Warmth noted Pain: none Goals of Treatment: ? continue barrier cream turn and repos Q2hr and FRANCESCA pump Recommendations: 1. Turn and Reposition every 2 hours and as needed for patient comfort.? Use pillows or wedges to support off loading positions. 2. Off Load all bony prominences with use of pillows and heel boots if needed.? Apply Preventative foams where needed. ? 3. Monitor for incontinence and moisture control, use barrier creams when needed for prevention and treatment. 4. Provide adequate and supplemental nutrition.? 5. Order low air loss mattress. 6. When applicable maintain blood glucose levels per Providers order. 7. Buttock - Off Load Pressure with Q2 hr turns and use of pillows - Cleanse with PH balance spray or wipes, pat dry. ?Apply thin layer of barrier cream to wound bed - Reapply thin layer PRN after each episode of incontinence. Re-consult wound care Nurse for wound deterioration or wound changes.
[2024-07-25 19:29] VITALS: BP 128/63; PULSE 85; RESP 18; TEMP 36.6; O2SAT 97
[2024-07-25 20:06] LABS: Glucose, Whole Blood 176 mg/dL (60-115)
[2024-07-25] MEDS: cefTRIAXone sodium 1 GM VIAL IVPUSH (20:16)
[2024-07-25 23:30] VITALS: BP 153/67; PULSE 104; RESP 16; TEMP 36.4; O2SAT 93
[2024-07-26] VITALS (8 sets, daily range): BP systolic 132–162; BP diastolic 65–84; PULSE 87–127; RESP 18–20; TEMP 36.6–38.8; O2SAT 90–97; BMI 39.8
[2024-07-26] MEDS: Acetaminophen 325 MG TABLET 650 MG PO (04:15)
[2024-07-26] MEDS: guaiFENesin DM 200/20/10 ML 10 ML SYRUP PO (04:16)
[2024-07-26] MEDS: Sodium Chloride 0.45 % 1,000 ML 100 ML IVCONT (05:28)
[2024-07-26] MEDS: Levothyroxine Sodium 150 MCG TABLET PO (05:30)
[2024-07-26 07:21] LABS: Glucose, Whole Blood 257 mg/dL (60-115)
[2024-07-26] MEDS: Insulin Lispro 100 UNIT/ML 3 ML VIAL SUBCUT ×4 (07:41→20:43)
[2024-07-26] MEDS: Insulin Glargine,Hum.rec.anlog 100 UNIT/ML 10 ML VIAL 10 UNIT SUBCUT (09:34)
[2024-07-26] MEDS: Heparin Sodium,Porcine 5,000 UNIT/ML VIAL 5000 UNIT SUBCUT ×3 (09:34→20:43)
[2024-07-26 09:35] LABS: Anion Gap 12 (12-20); Blood Urea Nitrogen 15 mg/dL (9-16); Calcium 8.7 mg/dL (8.4-10.2); Carbon Dioxide 23 mmol/L (22-29); Chloride 112 mmol/L (96-108); Creatinine Clr Calc Pharmacy 45.6; Estimated Glomerular Filt Rate 51; Glucose Random 265 mg/dL (60-115); Potassium 3.6 mmol/L (3.3-5.1); Sodium 143 mmol/L (135-145)
[2024-07-26] MEDS: Omeprazole 20 MG CAPSULE.DR PO (09:35)
[2024-07-26] MEDS: Aspirin Enteric Coated 81 MG TABLET.DR PO (09:35)
[2024-07-26] MEDS: amLODIPine Besylate 5 MG TABLET PO (09:35)
[2024-07-26] MEDS: Atorvastatin Calcium 10 MG TABLET PO (09:35)
[2024-07-26 11:06] LABS: Glucose, Whole Blood 281 mg/dL (60-115)
[2024-07-26] MEDS: polyethylene glycoL 3350 17 GM POWD.PACK PO (11:57)
--- NOTE | 2024-07-26 12:54 | MHC.CM.PN ---
pt given a physician phamplet
--- NOTE | 2024-07-26 13:21 | PM.DS ---
DS: Providers Provider Date of Service: 07/26/24 Date of admission: 07/23/24 01:01 Date of discharge: 07/26/24 Primary care physician: None Physician Consults: 07/23/24 03:06 Consult to Wound Care Routine Reason for consultation: Maceration to buttocks 07/24/24 18:06 Consult to Nephrology Routine Consulting Provider: [facility] Reason for consultation: hypernatremia Has provider been notified: No Attending physician on discharge: Chantel Duarte Discharging clinician: Chantel Duarte DS: Diagnosis Discharge Diagnosis (1) Hypernatremia: Status: Acute (2) Hyperosmolar hyperglycemic state (HHS): Status: Acute DS: Summary Hospital Course Hospital Course: Date of service and discharge:07/29/24 HPI:68 year old female with a past medical history of diabetes mellitus? Alzheimer?s dementia, hypertension,? hyperlipidemia and hypothyroidism? who presented to the emergency department due to altered mental status.? According to daughter, who is also patient SUPPORT WORKER,? patient has a diagnosis of Alzheimer?s dementia,? in the last month? patient?s speech/mentation/ambulation has decreased,? reports she? became nonverbal 2-3 days ago.? She reports patient has also had a hard time taking her meds, ? states she has tried to crush them but patient is still not able to take the meds,? daughter is unsure for how long patient has not been taking her meds.? Also admits to giving her THC gummies,? to help her sleep.? ?Laboratory data significant for? WBC 13.7, serum sodium 155, chloride 118, serum bicarb 21, BUN 83, creatinine 3.34, random glucose 1152,? lactic 4.4, lipase 125 Urine:? no ketones,? positive for leukocytes IMAGING:? Head CT: Negative? for acute finding ?Chest x-ray:? no acute findings ED COURSE:? ?Patient received 3L bolus,? 15 units of IV push insulin,? ceftriaxone 1 g, and started on insulin drip? Hospital course: patient was admitted to the hospital because of acute metabolic encephalopathy secondary to possible THC gummies,electrolytic abnormalities sec to hhs ,jennifer-for which patient required to go to icu for hydration and insulin drip-her hyperglycemia seems improved-checked Hba1c above 11 : started on lantus 10 units daily and sliding scale coverage: With above supportive care patient mental status seems to be now at baseline. Diabetes with hyperglycemia: Started on Lantus and sliding scale-patient family educated in detail about diabetes education: Monitor fingersticks at home, further Lantus adjustment out patiently with PCP. diabetic education given to the family. also patient found to have sepsis with uti-started on ceftriaxone , urine culture and blood cultures sent: blood culture came out to be negative and urine culture shows Proteus sensitive to ceftriaxone. Patient was switched to p.o. Ceftin upon discharge. Sepsis resolved. Patient has mild thrombocytopenia possibly secondary to viral sepsis, thrombocytopenia somewhat improving, monitor CBC out patiently with PCP. hypothyroidism: TSH elevated at 9.7 range(? unclear if did not take levothyroxine): started back home dose levothyroxine, check TSH and freeT4 outpatient with pcp. morbid obesity -weight loss advised,cut down calories. Plan: check cbc,bmp outpatient ceftin 500 mg bid x5more days. Tamiflu 30 mg p.o. b.i.d. for 2days dose levothyroxine, check TSH and freeT4 outpatient with pcp. strongly advised to abstain from THC gummies and products. Encouraged for hydration, repeat BMP out patiently in 1 week and consider reintroducing lisinopril as per renal function. started on lantus 10 units daily and sliding scale coverage. diabetic education given to the family. patient will go home with vna . Above management discussed with the patient family in detail length-they understand and in agreement with the plan, time spent 40 minute. Time Attestation Total time managing care of this patient today: 40 mintues. Discharge Coordination Time (in mins): 40 min Quality: Safe Use of Opioids Does Pt have an Active Cancer Diagnosis on the Problem List?: No Quality: Stroke Does the patient have a stroke diagnosis?: No Physical Exam Vital Signs: Vital Signs: Last Vital Signs Temp 98.9 F 07/26/24 11:36 Pulse 102 H 07/26/24 11:36 Resp 20 07/26/24 11:36 BP 152/68 H 07/26/24 11:36 Pulse Ox 92 07/26/24 11:36 O2 Del Method Room Air 07/26/24 11:36 BMI result Body Mass Index 39.8 Appearance: awake ,mental status at baseline as per family at bedside. cvs: rrr, [id number] . res: air entry fair, no rales or wheezing. abd: no rebound or guarding ,nt, bs present. ext pulses present , no cyanosis. neuro: axo3 , nonfocal. DS: Data Data Completed and Pending Labs on day of discharge: Laboratory Results - last 24 hr 07/25/24 07/25/24 07/26/24 16:02 20:02 07:18 Sodium Potassium Chloride Carbon Dioxide Anion Gap BUN Creatinine Estim Creat Clear Calc Estimated GFR POC Glucose 243 H 176 H 257 H Random Glucose Calcium 07/26/24 07/26/24 08:02 11:02 Sodium 143 Potassium 3.6 Chloride 112 H Carbon Dioxide 23 Anion Gap 12 BUN 15 Creatinine 1.08 Estim Creat Clear Calc 45.6 Estimated GFR 51 POC Glucose 281 H Random Glucose 265 H Calcium 8.7 Preliminary micro results at discharge 07/23/24 01:16 Blood Culture - Preliminary Blood - Venous No growth after 48 hours. 07/23/24 01:16 Blood Culture - Preliminary Blood - Venous No growth after 48 hours. Discharge Plan Discharge Anticipated Discharge Date/Time: 07/26/24 11:59 Patient Disposition: Home Health Service Discharge Diagnosis: encephalopathy,dm Referrals: [facility] [Other] - 1 Week Physician,None [Physician] - 1 Week Discharge Medications: New cefuroxime axetil 500 mg tablet 500 mg PO BID Qty: 10 0RF (DME) blood-glucose meter [FreeStyle Lite Meter] Kit Qty: 1 0RF Rx Instructions: As Directed alcohol swabs Pads, Medicated 1 pad TOPICAL QIDACHS Qty: 100 0RF Rx Instructions: Use four times a day or as directed. insulin lispro [Humalog KwikPen Insulin] 100 unit/mL insulin pen 0 sliding scale dose SUBCUT QIDACHS Qty: 15 0RF Rx Instructions: Blood Sugar: <150 - 0 units 151-200 - 2 units 201-250 - 4 units 251-300 - 6 units 301-350 - 8 units >350 - 10 units insulin glargine [Lantus Solostar U-100 Insulin] 100 unit/mL (3 mL) insulin pen 10 unit SUBCUT DAILY Qty: 30 0RF (DME) pen needle, diabetic 32 gauge x 1/4 needle Qty: 100 0RF Rx Instructions: Use four times a day or as directed. (DME) lancets [FreeStyle Lancets] 28 gauge misc Qty: 100 0RF Rx Instructions: Test four times a day or as directed. dextrose [Glucose Gel] 40 % gel 10 g PO Q15M PRN (Reason: hypocalcemia) Qty: 112.5 0RF Rx Instructions: until symptoms of low blood sugar are controlled oseltamivir 30 mg Capsule 30 mg PO Q12H Qty: 4 0RF Continued aspirin 81 mg Tablet,Delayed Release (Dr/Ec) 81 mg PO DAILY atorvastatin 10 mg Tablet 10 mg PO DAILY donepezil 10 mg Tablet 10 mg PO BEDTIME amlodipine 5 mg Tablet 5 mg PO DAILY bisoprolol-hydrochlorothiazide 10-6.25 mg Tablet 1 tab PO DAILY omeprazole 20 mg Capsule,Delayed Release(Dr/Ec) 20 mg PO DAILY levothyroxine 150 mcg Tablet 150 mcg PO DAILY Held lisinopril 20 mg Tablet 20 mg PO DAILY Hold Instructions: Resume on 08/08/24. Discontinued glipizide 2.5 mg Tablet Extended Release 24hr 2.5 mg PO DAILY Discharge Orders: Discharge Order (Routine); Ordered 07/29/24 Ordered By: Chantel Duarte Diet: Advance to usual diet Activity on Discharge: As tolerated Stand Alone Forms: Patient Portal Discharge page Print Language: Icelandic Other Ambulatory Orders: Basic Metabolic Panel (Routine) Timeframe: 1 Week Facility: [facility] - Location: Laboratory Ordered By: Chantel Duarte Complete Blood Count no Diff (Routine) Timeframe: 1 Week Facility: [facility] - Location: Laboratory Ordered By: Chantel Duarte TSH reflex Free T4 (Routine) Timeframe: 1 Week Facility: [facility] - Location: Laboratory Ordered By: Chantel Duarte Care Plan Goals: patient was admitted to the hospital because of acute metabolic encephalopathy secondary to possible THC gummies,electrolytic abnormalities sec to hhs -for which patient required to go to icu for hydration and insulin drip-her hyperglycemia seems improved-checked Hba1c above 11 : started on lantus 10 units daily and sliding scale coverage. diabetic education given to the family. also patient found to have sepsis with uti-started on ceftriaxone , urine culture and blood cultures sent: blood culture came out to be negative and urine culture shows Proteus sensitive to ceftriaxone. Patient was switched to p.o. Ceftin upon discharge. Mild thrombocytopenia possibly in the setting viral sepsis secondary to influenza A. hypothyroidism: TSH elevated at 9.7 range(? unclear if did not take levothyroxine): started back home dose levothyroxine, check TSH and freeT4 outpatient with pcp. Health Concerns: check cbc,bmp outpatient ceftin 500 mg bid x5more days. Tamiflu 30 mg p.o. b.i.d. for 2days dose levothyroxine, check TSH and freeT4 outpatient with pcp. strongly advised to abstain from THC gummies and products. Encouraged for hydration, repeat BMP out patiently in 1 week and consider reintroducing lisinopril as per renal function. started on lantus 10 units daily and sliding scale coverage. diabetic education given to the family. Plan of Treatment: as above. Assessment: as above. Patient Instructions: Type 1 Diabetes in Adults: New Diagnosis (DC), Meal Planning with Diabetes Exchanges (GEN)
--- NOTE | 2024-07-26 13:40 | W.MHC.F2F ---
Service Date Service Date: 07/26/24 Encounter Date of encounter: 07/26/24 Encounter: Sepsis, UTI, HHS, metabolic encephalopathy. Reasons for Services Signs and symptoms assessed: Monitor for any urinary complaints, fever, worsening mental status. Reason for prison: diabetic teaching, monitoring of unstable blood sugar, medication management, medication treatment and teach disease management MD Overseeing Care: Mary Younger Homebound: Leaving the home is medically contraindicated at this time without the asist of a device and/or another person due th the listed conditions above and below. Reason homebound: weakness related to hospital stay Homebound supporting statement: Patient is generalised weak post hospitlisation and need help with going to appointments and labs,medical management. Certification: Based on the above findings, I certify that this patient is confined to the home and needs intermittent prison care, physical therapy and/or speech therapy, or continues to need occupational therapy. The patient is under my care, and I have initiated the establishment of the plan of care. The patient will be followed by a physician who will periodically review the plan of care. Time Spent With Patient Time: Total time managing care of this patient today ____ minutes.
--- NOTE | 2024-07-26 13:55 | MHC.SLORD ---
Speech Language Pathology Order Status: Pt d/c planned for today, pt has resumed regular diet with thin liquids, tolerating PO without incidence. FLAKE OR SHRED ROLL OPERATOR recc followup post d/c if dysphagia progresses or concerns arise. Pt daughter in agreement.
--- NOTE | 2024-07-26 15:24 | MHC.CM.PN ---
PTS DCD CANCELLED DUE TO A MEDICAL ISSUE LEFT [employer] [facility] RE SAME [phone]
[2024-07-26 15:29] LABS: Adenovirus PCR Not Detected (Not Detect.); Bordetella parapertussis PCR Not Detected (Not Detect.); Bordetella pertussis PCR Not Detected (Not Detect.); Chlamydia pneumoniae PCR Not Detected (Not Detect.); Coronavirus 229E PCR Not Detected (Not Detect.); Coronavirus HKU1 PCR Not Detected (Not Detect.); Coronavirus NL63 PCR Not Detected (Not Detect.); Coronavirus OC43 PCR Not Detected (Not Detect.); Human metapneumovirus PCR Not Detected (Not Detect.); Influenza B PCR Not Detected (Not Detect.); Mycoplasma pneumoniae PCR Not Detected (Not Detect.); Parainfluenza 1 PCR Not Detected (Not Detect.); Parainfluenza 2 PCR Not Detected (Not Detect.); Parainfluenza 3 PCR Not Detected (Not Detect.); Parainfluenza 4 PCR Not Detected (Not Detect.); RSV PCR Not Detected (Not Detect.); Rhino/Enterovirus PCR Not Detected (Not Detect.)
--- NOTE | 2024-07-26 15:49 | HO.PM.IMPN ---
Subjective Subjective Date of Service: 07/26/24 Interval History: fever cough Review of Systems seems has more cough runnin fevers 101.8*F no other symptoms Physical Exam Vital Signs: Vital Signs: Last Vital Signs Temp 101.8 F H 07/26/24 15:15 Pulse 118 H 07/26/24 15:15 Resp 20 07/26/24 11:36 BP 132/84 07/26/24 15:15 Pulse Ox 93 07/26/24 15:15 O2 Del Method Room Air 07/26/24 15:15 BMI result Body Mass Index 39.8 Appearance: awake . cvs: rrr, [id number] . res: air entryfair /somewhat diminshed ,no rales/wheezing abd: no rebound or guarding ,nt, bs present. ext pulses present , no cyanosis. neuro: axo3 , nonfocal. Objective Data Active Medications Acetaminophen (Acetaminophen 325 Mg Tablet) 650 mg PO Q6H PRN PRN Reason: Fever Last Admin: 07/26/24 04:15 Dose: 650 mg Documented By: BHUPINDER Amlodipine Besylate (Amlodipine Besylate 5 Mg Tablet) 5 mg PO DAILY [facility]; Protocol Last Admin: 07/26/24 09:35 Dose: 5 mg Documented By: MARIO Aspirin (Aspirin Enteric Coated 81 Mg Tablet.Dr) 81 mg PO DAILY [facility] Last Admin: 07/26/24 09:35 Dose: 81 mg Documented By: MARIO Atorvastatin Calcium (Atorvastatin Calcium 10 Mg Tablet) 10 mg PO DAILY [facility] Last Admin: 07/26/24 09:35 Dose: 10 mg Documented By: MARIO Benzonatate (Benzonatate 100 Mg Capsule) 100 mg PO TID [facility] Bisacodyl (Bisacodyl 10 Mg Supp.Rect) 10 mg DE BEDTIME PRN PRN Reason: Constipation Ceftriaxone Sodium (Ceftriaxone Sodium 1 Gm Vial) 1 gm IVPUSH BEDTIME [facility] Last Admin: 07/25/24 20:16 Dose: 1 gm Documented By: BHUPINDER Dextrose (Dextrose 50 % 25 Gm/50 Ml Syringe) 25 gm IVPUSH Q30M PRN PRN Reason: BG < 70 Dextrose (Dextrose 50 % 25 Gm/50 Ml Syringe) 25 gm IVPUSH Q15M PRN; Protocol PRN Reason: per Hypoglycemia Standing Ord. Docusate Sodium (Docusate Sodium 100 Mg/10 Ml Liquid) 100 mg PO BID [facility] Glucose (Glucose Gel 15 Gm Gel..Gram.) 15 gm PO Q15M PRN; Protocol PRN Reason: per Hypoglycemia Standing Ord. Guaifenesin (Guaifenesin 200 Mg/10 Ml 10 Ml Liquid) 10 ml PO Q4H [facility] Heparin Sodium (Porcine) (Heparin Sodium,Porcine 5,000 Unit/Ml Vial) 5,000 unit SUBCUT TID [facility] Last Admin: 07/26/24 09:34 Dose: 5,000 unit Documented By: MARIO Insulin Glargine (Insulin Glargine,Hum.Rec.Anlog 100 Unit/Ml 10 Ml Vial) 10 unit SUBCUT DAILY [facility] Last Admin: 07/26/24 09:34 Dose: 10 unit Documented By: MARIO Insulin Human Lispro (Insulin Lispro 100 Unit/Ml 3 Ml Vial) 0 unit SUBCUT QIDACHS [facility]; Protocol Last Admin: 07/26/24 11:58 Dose: 6 unit Documented By: MARIO Levothyroxine Sodium (Levothyroxine Sodium 150 Mcg Tablet) 150 mcg PO DAILY@0600 [facility] Last Admin: 07/26/24 05:30 Dose: 150 mcg Documented By: ODRISCarolin Omeprazole (Omeprazole 20 Mg Capsule.Dr) 20 mg PO DAILY@0630 [facility] Polyethylene Glycol (Polyethylene Glycol 3350 17 Gm Powd.Pack) 17 gm PO DAILY [facility] Last Admin: 07/26/24 11:57 Dose: 17 gm Documented By: MARIO Sodium Chloride (0.9 % Sodium Chloride Flush 3 Ml Syringe) 3 ml IVFLUSH QSHIFT [facility] Last Admin: 07/26/24 09:35 Dose: Not Given Documented By: MARIO Non-Admin Reason: IV Running Labs 07/24/24 05:15 07/26/24 08:02 Labs: Laboratory Results - last 24 hr 07/25/24 07/25/24 07/26/24 16:02 20:02 07:18 Anion Gap Estim Creat Clear Calc Estimated GFR POC Glucose 243 H 176 H 257 H Random Glucose Calcium 07/26/24 07/26/24 08:02 11:02 Anion Gap 12 Estim Creat Clear Calc 45.6 Estimated GFR 51 POC Glucose 281 H Random Glucose 265 H Calcium 8.7 Microbiology Microbiology Results: Microbiology 07/22/24 00:00 Urine Culture - Final Urine Catheterized - Correa Catheter Proteus mirabilis Assessment and Plan (1) Hypothyroidism: Status: Acute (2) OSMAN (acute kidney injury): Status: Acute (3) Hyperosmolar hyperglycemic state (HHS): Status: Acute Assessment and Plan: 68-year-old female past medical history significant for advanced Alzheimer dementia Acute encephalopathy: secondary to metabolic encephalopathy and THC gummies as per icu documentation -seems nonverbal head CT normal on admission Acute hypernatremia: was on D5W drip, then half normal saline sodium 148 moniter BMP dm with HHS: improved, on D5W for hypernatremia needing insulin drip hhs improved continue lantus 10 units ,fs with sliding scale coverage. seen by DIESEL FLEET MECHANIC -added diet . sepsis due to uti: urine culture :proteus -senstive to ceftriaxone blood culture neg@48hrs has intermittent fevers tachycardia due to dehydration -not due to sepsis. will check cxr since patient has cough ,also respiratory viral panel. hypothyroidism: TSH 9.7 Continue levothyroxine Hypertension: amlodipine 5 mg qd . Quality Stroke Does the patient have a stroke diagnosis?: No VTE Prior VTE?: No VTE Risk Level:: Medical - moderate - high VTE Device Contraindication: N/A - Device Ordered VTE Drug Contraindication: N/A - Med Ordered
[2024-07-26 15:53] LABS: Hematocrit 36.2 % (37.0-47.0); Hemoglobin 11.9 g/dl (12.0-16.0); Mean Corpuscular HGB Conc 32.9 g/dl (31.0-35.0); Mean Corpuscular Hemoglobin 27.7 pg (27.0-33.0); Mean Corpuscular Volume 84.2 fL (80.0-98.0); Mean Platelet Volume 12.8 fL (9.4-12.3); PLT CLUMP 1
[2024-07-26 16:01] LABS: SARS-CoV-2 PCR Not Detected (Not Detect.)
[2024-07-26 16:07] LABS: Influenza A PCR Detected (Not Detect.)
[2024-07-26 16:08] LABS: Glucose, Whole Blood 241 mg/dL (60-115)
[2024-07-26] MEDS: guaiFENesin 200 MG/10 ML 10 ML LIQUID PO (16:37)
[2024-07-26] MEDS: Benzonatate 100 MG CAPSULE PO (16:37)
[2024-07-26 17:08] LABS: WBC ABN SCTR FOR CBC 1
[2024-07-26 17:09] LABS: Platelet Count 84 X10*3/uL (160-400)
[2024-07-26] MEDS: Oseltamivir Phosphate 30 MG CAPSULE PO (19:25)
[2024-07-26 19:38] LABS: Glucose, Whole Blood 240 mg/dL (60-115)
[2024-07-26] MEDS: Docusate Sodium 100 MG/10 ML LIQUID PO (20:43)
[2024-07-26] MEDS: cefTRIAXone sodium 1 GM VIAL IVPUSH (20:43)
[2024-07-26] MEDS: 0.9 % Sodium Chloride Flush 3 ML SYRINGE IVFLUSH (20:44)
[2024-07-26] MEDS: Albuterol Sulfate (0.083%) 2.5 MG/3 ML VIAL.NEB INHALE (22:19)
[2024-07-27] VITALS (9 sets, daily range): BP systolic 106–145; BP diastolic 61–88; PULSE 79–97; RESP 16–19; TEMP 36.1–37.7; O2SAT 84–94; BMI 40.5
[2024-07-27] MEDS: Acetaminophen Supp 650 MG SUPP.RECT PR
[2024-07-27] MEDS: Omeprazole 20 MG CAPSULE.DR PO (05:36)
[2024-07-27] MEDS: guaiFENesin 200 MG/10 ML 10 ML LIQUID PO ×4 (05:36→21:01)
[2024-07-27] MEDS: Levothyroxine Sodium 150 MCG TABLET PO (05:36)
[2024-07-27] MEDS: Oseltamivir Phosphate 30 MG CAPSULE PO ×2 (05:36→16:31)
[2024-07-27] MEDS: Albuterol Sulfate (0.083%) 2.5 MG/3 ML VIAL.NEB INHALE (06:16)
[2024-07-27 07:25] LABS: Glucose, Whole Blood 263 mg/dL (60-115)
[2024-07-27] MEDS: polyethylene glycoL 3350 17 GM POWD.PACK PO (07:47)
[2024-07-27] MEDS: Insulin Glargine,Hum.rec.anlog 100 UNIT/ML 10 ML VIAL 10 UNIT SUBCUT (07:48)
[2024-07-27] MEDS: Insulin Lispro 100 UNIT/ML 3 ML VIAL SUBCUT ×4 (07:48→20:59)
[2024-07-27] MEDS: Aspirin Enteric Coated 81 MG TABLET.DR PO (07:49)
[2024-07-27] MEDS: amLODIPine Besylate 5 MG TABLET PO (07:49)
[2024-07-27] MEDS: Atorvastatin Calcium 10 MG TABLET PO (07:50)
[2024-07-27] MEDS: Docusate Sodium 100 MG/10 ML LIQUID PO ×2 (07:50→20:58)
[2024-07-27] MEDS: Heparin Sodium,Porcine 5,000 UNIT/ML VIAL 5000 UNIT SUBCUT ×3 (07:55→20:58)
[2024-07-27] MEDS: 0.9 % Sodium Chloride Flush 3 ML SYRINGE IVFLUSH ×3 (07:57→20:59)
[2024-07-27 11:08] LABS: Glucose, Whole Blood 229 mg/dL (60-115)
--- NOTE | 2024-07-27 12:18 | P.PNIM_ITS ---
Subjective Subjective Date of Service: 07/27/24 Interval History: uti, influenza, generalised weak Review of Systems seems somewhat improving no fevers Physical Exam 2 Vital Signs: Vital Signs: Last Vital Signs Temp 97.5 F 07/27/24 11:55 Pulse 84 07/27/24 11:55 Resp 19 07/27/24 11:55 BP 126/61 07/27/24 11:55 Pulse Ox 84 L 07/27/24 11:55 O2 Del Method Room Air 07/27/24 11:55 O2 Flow Rate 2 07/27/24 07:41 BMI result Body Mass Index 40.5 Appearance: awake . cvs: rrr, [id number] . res: air entry fair, no rales or wheezing. abd: no rebound or guarding ,nt, bs present. ext pulses present , no cyanosis. neuro: axo3 , nonfocal. Objective Data Active Medications Acetaminophen (Acetaminophen 325 Mg Tablet) 650 mg PO Q6H PRN PRN Reason: Fever Last Admin: 07/26/24 04:15 Dose: 650 mg Documented By: BHUPINDER Albuterol Sulfate (Albuterol Sulfate (0.083%) 2.5 Mg/3 Ml Vial.[place]) 2.5 mg INHALE Q4H PRN PRN Reason: Shortness of Breath/Wheezing Last Admin: 07/27/24 06:16 Dose: 2.5 mg Documented By: MATEO Amlodipine Besylate (Amlodipine Besylate 5 Mg Tablet) 5 mg PO DAILY [facility]; Protocol Last Admin: 07/27/24 07:49 Dose: 5 mg Documented By: JARON Aspirin (Aspirin Enteric Coated 81 Mg Tablet.) 81 mg PO DAILY [facility] Last Admin: 07/27/24 07:49 Dose: 81 mg Documented By: JARON Atorvastatin Calcium (Atorvastatin Calcium 10 Mg Tablet) 10 mg PO DAILY [facility] Last Admin: 07/27/24 07:50 Dose: 10 mg Documented By: JARON Benzonatate (Benzonatate 100 Mg Capsule) 100 mg PO TID [facility] Last Admin: 07/27/24 07:53 Dose: Not Given Documented By: JARON Non-Admin Reason: umable to swallow Bisacodyl (Bisacodyl 10 Mg Supp.Rect) 10 mg FL BEDTIME PRN PRN Reason: Constipation Ceftriaxone Sodium (Ceftriaxone Sodium 1 Gm Vial) 1 gm IVPUSH BEDTIME [facility] Last Admin: 07/26/24 20:43 Dose: 1 gm Documented By: ODRISCarolin Dextrose (Dextrose 50 % 25 Gm/50 Ml Syringe) 25 gm IVPUSH Q30M PRN PRN Reason: BG < 70 Dextrose (Dextrose 50 % 25 Gm/50 Ml Syringe) 25 gm IVPUSH Q15M PRN; Protocol PRN Reason: per Hypoglycemia Standing Ord. Docusate Sodium (Docusate Sodium 100 Mg/10 Ml Liquid) 100 mg PO BID [facility] Last Admin: 07/27/24 07:50 Dose: 100 mg Documented By: JARON Glucose (Glucose Gel 15 Gm Gel..Gram.) 15 gm PO Q15M PRN; Protocol PRN Reason: per Hypoglycemia Standing Ord. Guaifenesin (Guaifenesin 200 Mg/10 Ml 10 Ml Liquid) 10 ml PO Q4H [facility] Last Admin: 07/27/24 11:54 Dose: Not Given Documented By: JARON Non-Admin Reason: pt sedated Heparin Sodium (Porcine) (Heparin Sodium,Porcine 5,000 Unit/Ml Vial) 5,000 unit SUBCUT TID [facility] Last Admin: 07/27/24 07:55 Dose: 5,000 unit Documented By: JARON Insulin Glargine (Insulin Glargine,Hum.Rec.Anlog 100 Unit/Ml 10 Ml Vial) 10 unit SUBCUT DAILY [facility] Last Admin: 07/27/24 07:48 Dose: 10 unit Documented By: JARON Insulin Human Lispro (Insulin Lispro 100 Unit/Ml 3 Ml Vial) 0 unit SUBCUT QIDACHS [facility]; Protocol Last Admin: 07/27/24 12:10 Dose: 4 unit Documented By: JARON Levothyroxine Sodium (Levothyroxine Sodium 150 Mcg Tablet) 150 mcg PO DAILY@0600 [facility] Last Admin: 07/27/24 05:36 Dose: 150 mcg Documented By: BHUPINDER Omeprazole (Omeprazole 20 Mg Capsule.) 20 mg PO DAILY@0630 [facility] Last Admin: 07/27/24 05:36 Dose: 20 mg Documented By: BHUPINDER Oseltamivir Phosphate (Oseltamivir Phosphate 30 Mg Capsule) 30 mg PO Q12H [facility] Stop: 07/31/24 06:01 Last Admin: 07/27/24 05:36 Dose: 30 mg Documented By: BHUPINDER Polyethylene Glycol (Polyethylene Glycol 3350 17 Gm Powd.Pack) 17 gm PO DAILY [facility] Last Admin: 07/27/24 07:47 Dose: 17 gm Documented By: JARON Sodium Chloride (0.9 % Sodium Chloride Flush 3 Ml Syringe) 3 ml IVFLUSH QSHIFT [facility] Last Admin: 07/27/24 07:57 Dose: 3 ml Documented By: JARON Labs 07/26/24 15:38 07/26/24 08:02 Labs: Laboratory Results - last 24 hr 07/26/24 07/26/24 07/26/24 12:20 15:38 16:04 MCV 84.2 MCH 27.7 MCHC 32.9 RDW 14.0 Plt Count 84 L D MPV 12.8 H Absolute Nucleated RBC 0.000 Nucleated RBC % (auto) 0.0 POC Glucose 241 H Respiratory Panel Shepherd See Note Adenovirus (Rapid PCR) Not Detected B.pert (TEM-PCR) Not Detected B.parapertussis DNA PCR Not Detected C. pneumoniae DNA (PCR) Not Detected Coronavirus OC43 (PCR) Not Detected Coronavirus HKU1 (PCR) Not Detected Coronavirus 229E (PCR) Not Detected Coronavirus NL63 (PCR) Not Detected Human Metapneumovir PCR Not Detected Influenza A (RT-PCR) Detected A Influenza B (RT-PCR) Not Detected M. pneumoniae (PCR) Not Detected Parainfluenza 1 (PCR) Not Detected Parainfluenza 2 (PCR) Not Detected Parainfluenza 3 (PCR) Not Detected Parainfluenza 4 (PCR) Not Detected RSV (PCR) Not Detected Entero/Rhino (PCR) Not Detected SARS-CoV-2 RNA (RT-PCR) Not Detected 07/26/24 07/27/24 07/27/24 19:33 07:20 11:04 MCV MCH MCHC RDW Plt Count MPV Absolute Nucleated RBC Nucleated RBC % (auto) POC Glucose 240 H 263 H 229 H Respiratory Panel [facility] Adenovirus (Rapid PCR) B.pert (TEM-PCR) B.parapertussis DNA PCR C. pneumoniae DNA (PCR) Coronavirus OC43 (PCR) Coronavirus HKU1 (PCR) Coronavirus 229E (PCR) Coronavirus NL63 (PCR) Human Metapneumovir PCR Influenza A (RT-PCR) Influenza B (RT-PCR) M. pneumoniae (PCR) Parainfluenza 1 (PCR) Parainfluenza 2 (PCR) Parainfluenza 3 (PCR) Parainfluenza 4 (PCR) RSV (PCR) Entero/Rhino (PCR) SARS-CoV-2 RNA (RT-PCR) Microbiology Microbiology Results: Microbiology 07/22/24 00:00 Urine Culture - Final Urine Catheterized - Correa Catheter Proteus mirabilis Assessment and Plan (1) Acute UTI: Status: Acute (2) Hyperosmolar hyperglycemic state (HHS): Status: Acute Assessment and Plan: 68-year-old female past medical history significant for advanced Alzheimer dementia Acute encephalopathy: secondary to metabolic encephalopathy and THC gummies as per icu documentation -seems nonverbal head CT normal on admission Acute hypernatremia: was on D5W drip, then half normal saline sodium 148 moniter BMP dm with HHS: improved, on D5W for hypernatremia needing insulin drip hhs improved continue lantus 10 units ,fs with sliding scale coverage. seen by DIRECTOR OF RECRUITMENT AND ADMISSIONS -added diet . possible uti: urine culture : gram negative alaina blood culture neg@48hrs continue ceftriaxone. acute hypoxemic respiratory failure and viral sepsis: due to influenza A continue oxygen ,tamiflu ,nebs hypothyroidism: TSH 9.7 Continue levothyroxine Hypertension: continue amlodipine 5 mg qd back. hypoxemic respiratory failure and viral sepsis- continue oxygen ,tamiflu ,nebs Quality Stroke Does the patient have a stroke diagnosis?: No VTE Prior VTE?: No VTE Risk Level:: Medical - moderate - high VTE Device Contraindication: N/A - Device Ordered VTE Drug Contraindication: N/A - Med Ordered
--- NOTE | 2024-07-27 12:53 | MHC.SL.SWA ---
Speech Pathologist Impression: Risk of Aspiration Due to: Reduced Cognition Dysphasia Diet Status: Recommend DOWNGRADE diet to Chopped/Advanced, continue on thin liquids, pills whole in puree. Liquid Consistency and Strategies for Safe Swallow: Liquid Intake Recommendation: Thin Liquid Intake Strategies: Small Sips No Straws Solid Food Consistency: Dietary Recommendations: Regular Additional Modifications to Solid Foods: Patient w/ hx Alzheimer's dementia, pleasantly confused. Patient is impulsive and has a tendency to chug liquids. Recommend 1:1 assistance feeding and strategies to ensure slow pace: administer small bites, check oral cavity for clearance, guide patient to take small sips or pour small amount of liquid into cup to drink at a time. Oral Medication Intake: Whole with Puree Please contact the pharmacy regarding appropriate crushable or liquid drug formulations that are available whenever modified delivery is recommended. Compensatory Strategies and Precautions to be Taken for Safe Swallow: Sitting Upright (90 deg) No Straw Small Bites and Sips Alternate Liquids/Solids Rate of Ingestion Change Supervision While Eating and Drinking for Safe Swallow: Total Assistance (1:1) Foods to Avoid: Swallowing Recommended Treatments: Compens. Strategy Educat. Recommendation for Speech: Comment: Attempted to see patient at lunch today. Before entering room, DIRECTOR PAYER was flagged down by MELLY Powell who stated concern about current diet being too much for her, too difficult to manage. [place] [facility] [place] new DX of Influenza + Sepsis. Patient at this visit was sleeping, daughter present in room who reported that her mother was very tired today and sleeping a lot. Patient appears to have attempted lunch, took one bite, apparently with teeth, from large slice of turkey meat on tray. Daughter reported patient was not motivated to eat, too fatigued. Discussed with daughter down grading diet to precut, softer foods, which daughter endorsed. Recommend DOWNGRADE diet to Chopped/Advanced, continue on thin liquids, pills whole in puree. DIRECTOR PAYER will continue to follow, review diet change/tolerance. Frequency/Duration: Date Range for Service Req: Timeline to reassess: Occupational Health Nurse Manager Clinican/Clinical Fellow: No Supervisory Statement: I have reviewed and agree with the student/clinical fellow's documentation: N/A Speech Language Pathologist: Nell Arriaza M.A., CCC-DIRECTOR PAYER
--- NOTE | 2024-07-27 15:40 | PC.NURSE ---
pt oob to chair with guidance , pt able to walk to chair with minimal assistance pt just requiring frequent directions .
[2024-07-27 16:07] LABS: Glucose, Whole Blood 278 mg/dL (60-115)
[2024-07-27 20:29] LABS: Glucose, Whole Blood 218 mg/dL (60-115)
[2024-07-27] MEDS: Benzonatate 100 MG CAPSULE PO (20:58)
[2024-07-27] MEDS: cefTRIAXone sodium 1 GM VIAL IVPUSH (20:58)
[2024-07-28] VITALS (8 sets, daily range): BP systolic 125–141; BP diastolic 66–73; PULSE 91–100; RESP 16–20; TEMP 36–37.7; O2SAT 91–95; BMI 40.5
[2024-07-28] MEDS: guaiFENesin 200 MG/10 ML 10 ML LIQUID PO ×6 (03:15→22:23)
[2024-07-28] MEDS: Levothyroxine Sodium 150 MCG TABLET PO (05:43)
[2024-07-28] MEDS: Omeprazole 20 MG CAPSULE.DR PO (05:43)
[2024-07-28] MEDS: Oseltamivir Phosphate 30 MG CAPSULE PO ×2 (05:43→18:01)
[2024-07-28 07:21] LABS: Glucose, Whole Blood 203 mg/dL (60-115)
[2024-07-28] MEDS: Docusate Sodium 100 MG/10 ML LIQUID PO ×2 (07:47→22:23)
[2024-07-28] MEDS: Benzonatate 100 MG CAPSULE PO ×2 (07:47→22:24)
[2024-07-28] MEDS: Insulin Glargine,Hum.rec.anlog 100 UNIT/ML 10 ML VIAL 10 UNIT SUBCUT (07:47)
[2024-07-28] MEDS: Atorvastatin Calcium 10 MG TABLET PO (07:47)
[2024-07-28] MEDS: polyethylene glycoL 3350 17 GM POWD.PACK PO (07:47)
[2024-07-28] MEDS: amLODIPine Besylate 5 MG TABLET PO (07:47)
[2024-07-28] MEDS: 0.9 % Sodium Chloride Flush 3 ML SYRINGE IVFLUSH ×3 (07:48→22:25)
[2024-07-28] MEDS: Insulin Lispro 100 UNIT/ML 3 ML VIAL SUBCUT ×4 (07:48→22:24)
--- NOTE | 2024-07-28 10:28 | MHC.SL.SWA ---
Speech Pathologist Impression: Mild Oral Phase Dysphagia Risk of Aspiration Due to: Reduced Cognition Dysphasia Diet Status: No Change Liquid Consistency and Strategies for Safe Swallow: Liquid Intake Recommendation: Thin Liquid Intake Strategies: Small Sips No Straws Solid Food Consistency: Dietary Recommendations: Chopped/Advanced (NDD3) Additional Modifications to Solid Foods: Patient w/ hx Alzheimer's dementia, pleasantly confused. Patient is impulsive and has a tendency to chug liquids. Recommend 1:1 assistance feeding and strategies to ensure slow pace: administer small bites, check oral cavity for clearance, guide patient to take small sips or pour small amount of liquid into cup to drink at a time. Oral Medication Intake: Whole with Puree Please contact the pharmacy regarding appropriate crushable or liquid drug formulations that are available whenever modified delivery is recommended. Compensatory Strategies and Precautions to be Taken for Safe Swallow: Sitting Upright (90 deg) No Straw Small Bites and Sips Alternate Liquids/Solids Rate of Ingestion Change Supervision While Eating and Drinking for Safe Swallow: Total Assistance (1:1) Swallowing Recommended Treatments: Compens. Strategy Educat. Recommendation for Speech: 1-2 f/u Director Business Development Clinican/Clinical Fellow: No Supervisory Statement: I have reviewed and agree with the student/clinical fellow's documentation: N/A Speech Language Pathologist: Cara Lowe M.A., CCC-MANUFACTURERS REPRESENTATIVE
[2024-07-28 11:27] LABS: Glucose, Whole Blood 287 mg/dL (60-115)
[2024-07-28 11:31] LABS: Hematocrit 35.1 % (37.0-47.0); Hemoglobin 11.7 g/dl (12.0-16.0)
[2024-07-28 13:28] LABS: Platelet Count 123 X10*3/uL (160-400)
--- NOTE | 2024-07-28 13:29 | P.PNIM_ITS ---
Subjective Subjective Date of Service: 07/28/24 Interval History: hypoxia influenza a thrombocytopenia Review of Systems sob seems somewhat improving denies any chest pain Physical Exam 2 Vital Signs: Vital Signs: Last Vital Signs Temp 99.1 F 07/28/24 11:42 Pulse 99 07/28/24 11:42 Resp 19 07/28/24 11:42 BP 125/67 07/28/24 11:42 Pulse Ox 91 L 07/28/24 11:42 O2 Del Method Room Air 07/28/24 11:42 O2 Flow Rate 2.0 07/28/24 07:24 BMI result Body Mass Index 40.5 Appearance: awake . cvs: rrr, [id number] . res: air entry fair, no rales or wheezing. abd: no rebound or guarding ,nt, bs present. ext pulses present , no cyanosis. neuro: axo3 , nonfocal. Objective Data Active Medications Acetaminophen (Acetaminophen 325 Mg Tablet) 650 mg PO Q6H PRN PRN Reason: Fever Last Admin: 07/26/24 04:15 Dose: 650 mg Documented By: BHUPINDER Albuterol Sulfate (Albuterol Sulfate (0.083%) 2.5 Mg/3 Ml Vial.[place]) 2.5 mg INHALE Q4H PRN PRN Reason: Shortness of Breath/Wheezing Last Admin: 07/27/24 06:16 Dose: 2.5 mg Documented By: MATEO Amlodipine Besylate (Amlodipine Besylate 5 Mg Tablet) 5 mg PO DAILY [facility]; Protocol Last Admin: 07/28/24 07:47 Dose: 5 mg Documented By: CHLOE Aspirin (Aspirin Enteric Coated 81 Mg Tablet.) 81 mg PO DAILY [facility] Last Admin: 07/27/24 07:49 Dose: 81 mg Documented By: JARON Atorvastatin Calcium (Atorvastatin Calcium 10 Mg Tablet) 10 mg PO DAILY [facility] Last Admin: 07/28/24 07:47 Dose: 10 mg Documented By: CHLOE Benzonatate (Benzonatate 100 Mg Capsule) 100 mg PO TID [facility] Last Admin: 07/28/24 07:47 Dose: 100 mg Documented By: CHLOE Bisacodyl (Bisacodyl 10 Mg Supp.Rect) 10 mg MO BEDTIME PRN PRN Reason: Constipation Ceftriaxone Sodium (Ceftriaxone Sodium 1 Gm Vial) 1 gm IVPUSH BEDTIME [facility] Last Admin: 07/27/24 20:58 Dose: 1 gm Documented By: SANDY Dextrose (Dextrose 50 % 25 Gm/50 Ml Syringe) 25 gm IVPUSH Q30M PRN PRN Reason: BG < 70 Dextrose (Dextrose 50 % 25 Gm/50 Ml Syringe) 25 gm IVPUSH Q15M PRN; Protocol PRN Reason: per Hypoglycemia Standing Ord. Docusate Sodium (Docusate Sodium 100 Mg/10 Ml Liquid) 100 mg PO BID [facility] Last Admin: 07/28/24 07:47 Dose: 100 mg Documented By: CHLOE Glucose (Glucose Gel 15 Gm Gel..Gram.) 15 gm PO Q15M PRN; Protocol PRN Reason: per Hypoglycemia Standing Ord. Guaifenesin (Guaifenesin 200 Mg/10 Ml 10 Ml Liquid) 10 ml PO Q4H [facility] Last Admin: 07/28/24 11:13 Dose: 10 ml Documented By: CHLOE Insulin Glargine (Insulin Glargine,Hum.Rec.Anlog 100 Unit/Ml 10 Ml Vial) 10 unit SUBCUT DAILY [facility] Last Admin: 07/28/24 07:47 Dose: 10 unit Documented By: CHLOE Insulin Human Lispro (Insulin Lispro 100 Unit/Ml 3 Ml Vial) 0 unit SUBCUT QIDACHS [facility]; Protocol Last Admin: 07/28/24 11:33 Dose: 6 unit Documented By: CHLOE Levothyroxine Sodium (Levothyroxine Sodium 150 Mcg Tablet) 150 mcg PO DAILY@0600 [facility] Last Admin: 07/28/24 05:43 Dose: 150 mcg Documented By: SANDY Omeprazole (Omeprazole 20 Mg Capsule.) 20 mg PO DAILY@0630 [facility] Last Admin: 07/28/24 05:43 Dose: 20 mg Documented By: SANDY Oseltamivir Phosphate (Oseltamivir Phosphate 30 Mg Capsule) 30 mg PO Q12H [facility] Stop: 07/31/24 06:01 Last Admin: 07/28/24 05:43 Dose: 30 mg Documented By: SANDY Polyethylene Glycol (Polyethylene Glycol 3350 17 Gm Powd.Pack) 17 gm PO DAILY [facility] Last Admin: 07/28/24 07:47 Dose: 17 gm Documented By: CHLOE Sodium Chloride (0.9 % Sodium Chloride Flush 3 Ml Syringe) 3 ml IVFLUSH QSHIFT [facility] Last Admin: 07/28/24 07:48 Dose: 3 ml Documented By: CHLOE Labs 07/28/24 11:23 07/26/24 08:02 Labs: Laboratory Results - last 24 hr 07/27/24 07/27/24 07/28/24 16:02 20:22 07:17 Plt Count POC Glucose 278 H 218 H 203 H 07/28/24 11:23 Plt Count 123 L D POC Glucose 287 H Microbiology Microbiology Results: Microbiology 07/23/24 01:16 Blood Culture - Final Blood - Venous No growth after 5 days. 07/23/24 01:16 Blood Culture - Final Blood - Venous No growth after 5 days. Assessment and Plan (1) Acute UTI: Status: Acute (2) Hyperosmolar hyperglycemic state (HHS): Status: Acute Assessment and Plan: 68-year-old female past medical history significant for advanced Alzheimer dementia Acute encephalopathy: secondary to metabolic encephalopathy and THC gummies as per icu documentation -seems nonverbal head CT normal on admission Acute hypernatremia: was on D5W drip, then half normal saline sodium 148 moniter BMP dm with HHS: improved, on D5W for hypernatremia needing insulin drip hhs improved continue lantus 10 units ,fs with sliding scale coverage. seen by [facility] -added diet . possible uti: urine culture : gram negative alaina blood culture neg@48hrs continue ceftriaxone. acute hypoxemic respiratory failure and viral sepsis: due to influenza A continue oxygen ,tamiflu ,nebs hypothyroidism: TSH 9.7 Continue levothyroxine Hypertension: continue amlodipine 5 mg qd back. hypoxemic respiratory failure and viral sepsis- continue oxygen ,tamiflu ,nebs Quality Stroke Does the patient have a stroke diagnosis?: No VTE Prior VTE?: No VTE Risk Level:: Medical - moderate - high VTE Device Contraindication: N/A - Device Ordered VTE Drug Contraindication: N/A - Med Ordered
[2024-07-28 16:02] LABS: Glucose, Whole Blood 218 mg/dL (60-115)
[2024-07-28 20:20] LABS: Glucose, Whole Blood 248 mg/dL (60-115)
[2024-07-28] MEDS: cefTRIAXone sodium 1 GM VIAL IVPUSH (22:24)
[2024-07-29 03:15] VITALS: BP 134/64; PULSE 86; RESP 18; TEMP 36.1; O2SAT 93
[2024-07-29] MEDS: guaiFENesin 200 MG/10 ML 10 ML LIQUID PO ×3 (03:53→11:28)
[2024-07-29 06:00] VITALS: BMI 37.4
[2024-07-29] MEDS: Omeprazole 20 MG CAPSULE.DR PO (06:10)
[2024-07-29] MEDS: Oseltamivir Phosphate 30 MG CAPSULE PO (06:10)
[2024-07-29] MEDS: Levothyroxine Sodium 150 MCG TABLET PO (06:10)
[2024-07-29 07:25] LABS: Glucose, Whole Blood 223 mg/dL (60-115)
[2024-07-29 07:45] VITALS: BP 162/78; PULSE 83; RESP 16; TEMP 37.4; O2SAT 93
[2024-07-29] MEDS: Insulin Lispro 100 UNIT/ML 3 ML VIAL SUBCUT ×2 (08:02→11:29)
[2024-07-29] MEDS: Docusate Sodium 100 MG/10 ML LIQUID PO (08:03)
[2024-07-29] MEDS: Benzonatate 100 MG CAPSULE PO (08:03)
[2024-07-29] MEDS: Atorvastatin Calcium 10 MG TABLET PO (08:03)
[2024-07-29] MEDS: amLODIPine Besylate 5 MG TABLET PO (08:03)
[2024-07-29] MEDS: 0.9 % Sodium Chloride Flush 3 ML SYRINGE IVFLUSH (08:03)
[2024-07-29] MEDS: polyethylene glycoL 3350 17 GM POWD.PACK PO (08:06)
[2024-07-29] MEDS: Insulin Glargine,Hum.rec.anlog 100 UNIT/ML 10 ML VIAL 10 UNIT SUBCUT (08:54)
[2024-07-29 11:11] LABS: Glucose, Whole Blood 379 mg/dL (60-115)
[2024-07-29 12:00] VITALS: BP 133/75; PULSE 90; RESP 16; TEMP 36.9; O2SAT 93
--- NOTE | 2024-07-29 13:31 | MHC.CM.PN ---
Addendum entered by Kadi Diamond 07/29/24 13:57: BLS TRANSPORT BOOKED FOR 1430 HOURS Original Note: PT WILL DC HOME TODAY WITH [facility] CM MET WITH PT AND DAUGHTER WITH THE ASSISTANCE OF A EDITOR SOUND THEY ARE AWARE OF, AND IN AGREEMENT WITH, DCP BLS TRANSPORT WILL BE ARRANGED VIA [facility]
[2024-07-29 14:15] VITALS: BP 131/77; PULSE 92; RESP 16; TEMP 36.5; O2SAT 96
== END 2024-07-29 15:09 | disposition home health service (06) | DRG 637 ==
LOC: HO.ED 07-23 01:01 → HO.EDOVER 07-23 01:06 → HO.ICU 07-23 01:15 → HO.S3 07-24 19:01
PROVIDERS: Internal Medicine; Internal Medicine Critical Care Medicine; Internal Medicine Pulmonary Disease; Physician Assistant Medical; Admitting Provider Registered Nurse Community Health; Emergency Provider Emergency Medicine; PCP Physician Assistant; Visit Provider Internal Medicine
DX: E11.00 Type 2 diabetes mellitus with hyperosmolarity without nonketotic hyperglycemic-hyperosmolar coma (NKHHC) (principal); A41.89 Other specified sepsis; G92.8 Other toxic encephalopathy; G93.41 Metabolic encephalopathy; N39.0 Urinary tract infection, site not specified; E03.9 Hypothyroidism, unspecified; G30.9 Alzheimer's disease, unspecified; J10.1 Influenza due to other identified influenza virus with other respiratory manifestations; E66.01 Morbid (severe) obesity due to excess calories; B96.4 Proteus (mirabilis) (morganii) as the cause of diseases classified elsewhere; E86.1 Hypovolemia; D69.59 Other secondary thrombocytopenia; T40.715A Adverse effect of cannabis, initial encounter; Z68.37 Body mass index [BMI] 37.0-37.9, adult; F02.80 Dementia in other diseases classified elsewhere, unspecified severity, without behavioral disturbance, psychotic disturbance, mood disturbance, and anxiety; Z20.822 Contact with and (suspected) exposure to COVID-19; Z71.3 Dietary counseling and surveillance; Z91.148 Patient's other noncompliance with medication regimen for other reason; Z79.82 Long term (current) use of aspirin; Z79.890 Hormone replacement therapy; Z79.899 Other long term (current) drug therapy
CPT/HCPCS: 0241U; 36415; 70450; 71045; 74176; 80048; 80051; 80076; 80307; 81001; 82040; 82140; 82803; 82947; 83036; 83605; 83690; 83735; 83880; 84100; 84436; 84443; 84484; 85014; 85018; 85025; 85027; 85049; 87040; 87086; 87088; 87186; 87633; 92526; 92610; 93005; 94640; 97161; 97162; 99285; J0696; J1644; J2310; J3480

== ENCOUNTER → 2024-07-22 19:40 | Outpatient (BNV) | payer OTHER, SELFPAY | PROVIDERS: Admitting Provider Registered Nurse Community Health; Emergency Provider Emergency Medicine; Visit Provider Internal Medicine Cardiovascular Disease | DX: R41.82 Altered mental status, unspecified (principal) | CPT/HCPCS: 93010 ==

== ENCOUNTER → 2024-07-22 19:41 | Outpatient (BNV) | payer OTHER, SELFPAY | PROVIDERS: Emergency Provider Emergency Medicine; Visit Provider Radiology Diagnostic Radiology | DX: R41.82 Altered mental status, unspecified (principal) | CPT/HCPCS: 70450; 71045 ==

== ENCOUNTER 2024-07-23 01:01 | Outpatient (BNV) | payer OTHER, SELFPAY | END 2024-07-23 01:25 | PROVIDERS: Admitting Provider Registered Nurse Community Health; Emergency Provider Emergency Medicine; Visit Provider Radiology Diagnostic Radiology | DX: R41.82 Altered mental status, unspecified (principal) | CPT/HCPCS: 74176 ==

== ENCOUNTER 2024-07-23 01:01 | Outpatient (BNV) | payer OTHER, SELFPAY | END 2024-07-26 15:35 | PROVIDERS: Admitting Provider Registered Nurse Community Health; Emergency Provider Emergency Medicine; PCP Physician Assistant; Visit Provider Radiology Diagnostic Radiology | DX: R05.9 Cough, unspecified (principal) | CPT/HCPCS: 71045 ==

== ENCOUNTER → 2024-07-23 01:01 | Outpatient (BNV) | payer OTHER, SELFPAY | PROVIDERS: Admitting Provider Registered Nurse Community Health; Emergency Provider Emergency Medicine; PCP Physician Assistant; Visit Provider Internal Medicine Hypertension Specialist | DX: N17.9 Acute kidney failure, unspecified (principal); E11.00 Type 2 diabetes mellitus with hyperosmolarity without nonketotic hyperglycemic-hyperosmolar coma (NKHHC); E87.0 Hyperosmolality and hypernatremia; E03.9 Hypothyroidism, unspecified | CPT/HCPCS: 99223 ==

== ENCOUNTER → 2024-07-23 01:01 | Outpatient (BNV) | payer OTHER, SELFPAY | PROVIDERS: Admitting Provider Registered Nurse Community Health; Emergency Provider Emergency Medicine; Visit Provider Internal Medicine | DX: N39.0 Urinary tract infection, site not specified (principal); E11.00 Type 2 diabetes mellitus with hyperosmolarity without nonketotic hyperglycemic-hyperosmolar coma (NKHHC) | CPT/HCPCS: 99231; 99232; 99239; 99499; G0180 ==

== ENCOUNTER → 2024-07-23 01:01 | Outpatient (BNV) | payer OTHER, SELFPAY | PROVIDERS: Admitting Provider Registered Nurse Community Health; Emergency Provider Emergency Medicine; Visit Provider Registered Nurse Community Health | DX: I73.89 Other specified peripheral vascular diseases (principal); E11.00 Type 2 diabetes mellitus with hyperosmolarity without nonketotic hyperglycemic-hyperosmolar coma (NKHHC); A41.9 Sepsis, unspecified organism; N39.0 Urinary tract infection, site not specified | CPT/HCPCS: 99223; 99291 ==